=== PATIENT | female | born 1950 | race Caucasian/White ===

== ENCOUNTER 2020-03-03 09:08 | Outpatient (REF) | payer BC, SELFPAY ==
--- NOTE | 2020-03-03 | MM_ITS ---
EXAMINATION: BONE DENSITOMETRY CLINICAL INDICATION: Asymptomatic menopausal state. COMPARISON: Previous BD dated 01/29/2018 and baseline BD dated 06/11/2007. TECHNIQUE: Using a [employer] DXA System (software version: 13.1) manufactured by [employer], dual-energy x-ray absorptiometry was performed of the lumbar spine and left hip. The images are of good technical quality. Summary results are attached. FINDINGS: AP SPINE L1-L4: Current: BMD 1.104 g/cm2, Z-score 0.7, T-score -0.6, normal, 4.2% increase from previous, 5.1% increase from baseline (<5% change is not significant). Prior: BMD 1.060 g/cm2. Baseline: BMD 1.050 g/cm2. LEFT FEMUR, NECK: Current: BMD 0.794 g/cm2, Z-score -0.3, T-score -1.8, osteopenia. Prior: BMD 0.855 g/cm2. Baseline: BMD 0.931 g/cm2. LEFT FEMUR, TOTAL: Current: BMD 0.891 g/cm2, Z-score 0.3, T-score -0.9, normal, 1.0% decrease from previous, 7.2% decrease from baseline (<5% change is not significant). Prior: BMD 0.900 g/cm2. Baseline: BMD 0.960 g/cm2. IDENTIFIED RISK FACTORS: Menopause. HISTORY OF FRACTURE: None listed. MEDICATIONS: Calcium supplements or multivitamin, vitamin D. MM/XR DEXA axial skeleton IMPRESSION: 1. DIAGNOSIS: Osteopenia based on the lowest T-score value of -1.8 in the femoral neck applying World Health Organization criteria. 2. 10-YEAR FRACTURE RISK PREDICTION, FRAX: Major osteoporotic fracture (clinical spine, forearm, hip or shoulder) 10.1%. Hip fracture 1.7%. 3. Treatment Recommendations: NOF guidelines recommend consideration for treatment in postmenopausal women and men age 50 and older presenting with the following: -A hip or vertebral (clinical or morphometric) fracture. -T-score less than or equal to -2.5 at the femoral neck or spine after appropriate evaluation to exclude secondary causes. -Low bone mass at the hip or spine and a 10-year fracture probability by FRAX of greater than or equal to 3% for hip fracture or greater than or equal to 20% for major osteoporotic fracture based on the [place] adapted WHO algorithm. 4. Other Recommendations: All treatment decisions require clinical judgment and consideration of individual patient factors, including patient preferences, comorbidities, previous drug use, risk factors not captured in the FRAX model (e.g. frailty, falls, vitamin D deficiency, increased bone turnover, interval significant decline in bone density) and possible under or overestimation of fracture risk by FRAX. Additional medical evaluation for secondary cause of low bone mineral density may be appropriate. FUTURE SCAN RECOMMENDATION: People with diagnosed cases of osteoporosis or at high risk for fracture should have regular bone mineral density tests. For patients eligible for Medicare, routine testing is allowed once every 2 years. The testing frequency can be increased to one year for patients who have rapidly progressing disease, those who are receiving or discontinuing medical therapy to restore bone mass, or have additional risk factors.
--- NOTE | 2020-03-03 | MM_ITS ---
EXAMINATION: MM SCREENING DIGITAL BREAST TOMOSYNTHESIS, BILATERAL CLINICAL INFORMATION: Screening. Asymptomatic. The lifetime risk of breast cancer based on the Tyrer-Cuzick Model is 4%. COMPARISON: Mammography: 02/26/2019, 01/29/2018, 01/25/2017 TECHNIQUE: Digital breast tomosynthesis is performed in both the craniocaudal and mediolateral oblique views along with computer-aided detection (CAD). Synthesized 2D images are generated from the tomosynthesis. FINDINGS: There are scattered areas of fibroglandular density (ACR BI-RADS breast composition Category b). There is fine fibronodular parenchymal pattern similar to prior studies. No developing density or interval mass or abnormal calcifications. There is a biopsy clip marker again noted right breast mid 5:30 o'clock position. No significant changes. MM/MM tomosynthesis screening BI IMPRESSION: No mammographic evidence of malignancy. ASSESSMENT: BI-RADS 1: Negative RECOMMENDATION: Routine annual mammography screening. This patient's information was entered into a reminder system with a target due date for their next mammogram.
== END 2020-03-03 09:09 | disposition home or self-care (01) ==
LOC: HO.MAMMO 09:08
PROVIDERS: PCP Internal Medicine; Visit Provider Internal Medicine
DX: Z12.31 Encounter for screening mammogram for malignant neoplasm of breast (principal); Z13.820 Encounter for screening for osteoporosis; Z78.0 Asymptomatic menopausal state
CPT/HCPCS: 77063; 77067; 77080

== ENCOUNTER 2020-05-05 09:53 | Outpatient (REF) | payer BC, SELFPAY ==
[2020-05-05 11:25] LABS: Alanine Aminotransferase 16 U/L (0-31); Albumin Level 4.3 g/dL (3.5-5.0); Alkaline Phosphatase 138 U/L (39-117); Anion Gap 12 (12-20); Aspartate Amino Transferase 22 U/L (5-31); Bilirubin Total 0.7 mg/dL (0.0-1.0); Blood Urea Nitrogen 15 mg/dL (9-16); Calcium 9.7 mg/dL (8.4-10.2); Carbon Dioxide 28 mmol/L (22-29); Chloride 104 mmol/L (96-108); Cholesterol 205 mg/dL; Estimated Glomerular Filt Rate > 60; Glucose Fasting 100 mg/dL (60-99); HDL Cholesterol 63 mg/dL; LDL Cholesterol Calculated 129 mg/dl; Potassium 4.6 mmol/l (3.3-5.1); Sodium 139 mmol/L (135-145); Total Protein 7.2 g/dL (6.5-8.0); Triglycerides 65 mg/dL
[2020-05-05 12:00] LABS: Vitamin D 25-OH Total 39.3 ng/mL (>30)
== END 2020-05-05 09:54 | disposition home or self-care (01) ==
LOC: HO.HMGCLDS 09:53
PROVIDERS: PCP Internal Medicine; Visit Provider Internal Medicine
DX: I10 Essential (primary) hypertension (principal); M85.80 Other specified disorders of bone density and structure, unspecified site; Z78.0 Asymptomatic menopausal state
CPT/HCPCS: 36415; 80053; 80061; 82306

== ENCOUNTER 2021-04-13 08:57 | Outpatient (REF) | payer OTHER, SELFPAY ==
--- NOTE | ~2021-04-13 | MM_ITS ---
EXAMINATION: MM SCREENING DIGITAL BREAST TOMOSYNTHESIS, BILATERAL CLINICAL INFORMATION: Screening. Asymptomatic. The lifetime risk of breast cancer based on the Tyrer-Cuzick Model is 3%. COMPARISON: Mammography: 03/03/2020, 02/26/2019, 01/29/2018 TECHNIQUE: Digital breast tomosynthesis is performed in both the craniocaudal and mediolateral oblique views along with computer-aided detection (CAD). Synthesized 2D images are generated from the tomosynthesis. FINDINGS: There are scattered areas of fibroglandular density (ACR BI-RADS breast composition Category b). There are no significant masses, abnormal calcifications, or other abnormalities. There is fine fibronodular parenchymal pattern similar to prior studies. No developing density or architectural abnormality. Biopsy clip marker again noted right breast mid 5:00 position. The axilla and skin contours are unremarkable. MM/MM tomosynthesis screening BI IMPRESSION: No mammographic evidence of malignancy. ASSESSMENT: BI-RADS 2: Benign RECOMMENDATION: Routine annual mammography screening. This patient's information was entered into a reminder system with a target due date for their next mammogram.
== END 2021-04-13 08:58 | disposition home or self-care (01) ==
LOC: HO.MAMMO 08:57
PROVIDERS: PCP Internal Medicine; Visit Provider Internal Medicine
DX: Z12.31 Encounter for screening mammogram for malignant neoplasm of breast (principal)
CPT/HCPCS: 77063; 77067

== ENCOUNTER 2021-12-22 07:51 | Outpatient (REF) | payer OTHER, SELFPAY ==
[2021-12-22 11:41] LABS: Alanine Aminotransferase 17 U/L (0-31); Anion Gap 13 (12-20); Aspartate Amino Transferase 21 U/L (5-31); Blood Urea Nitrogen 17 mg/dL (9-16); Calcium 9.7 mg/dL (8.4-10.2); Carbon Dioxide 28 mmol/L (22-29); Chloride 105 mmol/L (96-108); Cholesterol 204 mg/dL; Estimated Glomerular Filt Rate > 60; Glucose Fasting 92 mg/dL (60-99); HDL Cholesterol 65 mg/dL; LDL Cholesterol Calculated 129 mg/dl; Potassium 4.2 mmol/L (3.3-5.1); Sodium 142 mmol/L (135-145); Triglycerides 51 mg/dL
[2021-12-22 12:05] LABS: Vitamin D 25-OH Total 31.6 ng/mL (>30)
== END 2021-12-22 07:52 | disposition home or self-care (01) ==
LOC: HO.HMGCLDS 07:51
PROVIDERS: PCP Internal Medicine; Visit Provider Internal Medicine
DX: I10 Essential (primary) hypertension (principal); M85.80 Other specified disorders of bone density and structure, unspecified site; Z78.0 Asymptomatic menopausal state
CPT/HCPCS: 36415; 80048; 80061; 82306; 84450; 84460

== ENCOUNTER 2022-04-27 09:32 | Outpatient (REF) | payer OTHER, SELFPAY ==
--- NOTE | ~2022-04-27 | MM_ITS ---
EXAMINATION: MM SCREENING DIGITAL BREAST TOMOSYNTHESIS, BILATERAL CLINICAL INFORMATION: Screening. Asymptomatic. The lifetime risk of breast cancer based on the Tyrer-Cuzick Model is 2.8%. COMPARISON: Mammography: April 13, 2021 and studies dating back to May 20, 2015 TECHNIQUE: Digital breast tomosynthesis is performed in both the craniocaudal and mediolateral oblique views along with computer-aided detection (CAD). Synthesized 2D images are generated from the tomosynthesis. FINDINGS: There are scattered areas of fibroglandular density (ACR BI-RADS breast composition Category b). There are no significant masses, abnormal calcifications, or other abnormalities. Stable bilateral calcifications again noted. MM/MM tomosynthesis screening BI IMPRESSION: No significant changes from prior exam. ASSESSMENT: BI-RADS 2: Benign RECOMMENDATION: Routine annual mammography screening. This patient's information was entered into a reminder system with a target due date for their next mammogram.
== END 2022-04-27 09:33 | disposition home or self-care (01) ==
LOC: HO.MAMMO 09:32
PROVIDERS: PCP Internal Medicine; Visit Provider Internal Medicine
DX: Z12.31 Encounter for screening mammogram for malignant neoplasm of breast (principal)
CPT/HCPCS: 77063; 77067

== ENCOUNTER 2022-12-25 08:36 | Outpatient (REF) | payer OTHER, SELFPAY ==
[2022-12-25 12:30] LABS: Alanine Aminotransferase 12 U/L (0-31); Anion Gap 11 (12-20); Aspartate Amino Transferase 22 U/L (5-31); Blood Urea Nitrogen 17 mg/dL (9-16); Calcium 9.8 mg/dL (8.4-10.2); Carbon Dioxide 26 mmol/L (22-29); Chloride 107 mmol/L (96-108); Cholesterol 199 mg/dL (<200); Estimated Glomerular Filt Rate > 60; Glucose Fasting 89 mg/dL (60-99); HDL Cholesterol 72 mg/dL (>40); LDL Cholesterol Calculated 115 mg/dL (<100); Potassium 4.1 mmol/L (3.3-5.1); Sodium 140 mmol/L (135-145); Triglycerides 63 mg/dL (<150)
[2022-12-25 12:31] LABS: Vitamin D 25-OH Total 62.1 ng/mL (>30)
== END 2022-12-25 08:37 | disposition home or self-care (01) ==
LOC: HO.HMGCLDS 08:36
PROVIDERS: PCP Internal Medicine; Visit Provider Internal Medicine
DX: Z00.01 Encounter for general adult medical examination with abnormal findings (principal); I10 Essential (primary) hypertension; M85.80 Other specified disorders of bone density and structure, unspecified site; Z78.0 Asymptomatic menopausal state
CPT/HCPCS: 36415; 80048; 80061; 82306; 84450; 84460

== ENCOUNTER 2022-12-28 10:53 | Outpatient (AMB) | payer OTHER, SELFPAY ==
--- NOTE | 2022-12-28 10:58 | MHC.PC.OV ---
Vital Signs 12/28/22 11:01 Height 5 ft Weight 164 lb BMI 32.0 BP 120/60 Blood Pressure Location Rt brachial Position Sitting Pulse 75 Pulse Source Pulse Oximeter Pulse Oximetry (%) 99 Oxygen Delivery Method Room Air Intake Visit Reasons: Annual PE Intake Note: patient is here today for her annual PE Allergies codeine Allergy (Unknown, Verified 12/28/22 11:27) tachycardia hydromorphone [Dilaudid] Adverse Reaction (Unknown, Verified 12/28/22 11:27) vomiting Hydrocodone-Acetaminophen Adverse Reaction (Unknown, Uncoded 12/28/22 11:27) palpitations , twitching Medication List - Last Reconciled 12/28/22 by Darlyn Garcia MD cholecalciferol (vitamin D3) 50 mcg PO DAILY losartan 25 mg PO DAILY 90 days [id number] 1 tab PO DAILY Tobacco use date assessed: 12/28/22 Fall risk assessment: 1 Fall in past year Last assessed Fall Risk: 12/28/22 Dental Screening Dental Screen Date: 12/28/22 Did you have a dental visit in the last 12 months?: Yes Did you have a dental problem in the last 6 months where you did not have access to dental care?: No Was dental information given to patient?: Patient has dentist HPI Annual PE HPI Details 72-year-old lady here today for physical exam. She has hypertension currently stable and controlled on losartan 25 mg once a day. She has osteopenia left femoral neck as seen on a bone density scan done in 2019, no history of any fractures. She takes cholecalciferol 50 mcg once a day and stays active. She is up-to-date with her screening mammogram done earlier this year, and is up-to-date with her screening colonoscopy not due again until 2023, previously done by Dr. Sood. She has had her COVID vaccination, and gets yearly flu shots, up-to-date with her pneumonia vaccine and Tdap, but has not yet had a new Shingrix vaccine. [facility] Medical History Menopause Essential hypertension Osteopenia Recurrent kidney stones Surgical History History of laparoscopic appendectomy History of cataract surgery Family History Father Acute myocardial infarction Alcoholism Ankylosing spondylitis Mother HTN (hypertension) Thyroid disease Maternal Grandmother Non-insulin dependent diabetes mellitus Sister No problems noted. Sister No problems noted. Daughter No problems noted. Daughter No problems noted. Brother No problems noted. Brother No problems noted. Brother No problems noted. Brother No problems noted. Brother No problems noted. Social History Housing: House Alcohol intake: current Patient Tobacco Use Status: Former Tobacco user Tobacco use type: Cigarette Years Smoked: 5 yrs e-Cigarette/Vaping Use: Never Used Second Hand Smoke Exposure: No service: No Current occupational status: retired Cognitive needs: No Hearing needs: No Vision needs: No Questionnaire PHQ-9 Over the last 2 weeks, how often have you been bothered by any of the following problems? Depression Screening Interpretation: Negative Source: Developed by Drs. Shant Guzman, Danny Rockwell and colleagues, with an educational milady from [employer] Thrive Questionnaire Date Thrive assessed: 06/28/22 AUDIT C Alcohol Use Questionnaire (AUDIT-C) 1. How often do you have a drink containing alcohol?: Monthly or less 2. How many drinks containing alcohol do you have on a typical day when you are drinking?: 1 or 2 Total Score: 1 JACK-7 AMB Questionnaire JACK-7 Date JACK - 7 assessed: 06/28/22 Source: Developed by Drs. Shant Guzman, Danny Rockwell and colleagues, with an educational milady from [employer] 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 Denies change in vision, Denies eye discharge and Denies itchy eyes ENT Denies dizziness, Denies headache(s), Denies nasal congestion, Denies nasal discharge and Denies sore throat Card Denies chest pain, Denies lightheadedness, Denies palpitations and Denies dyspnea Resp Denies chest congestion, Denies cough, Denies dyspnea and Denies wheezing GI Denies abdominal pain, Denies change in bowel habits and Denies heartburn Denies urinary frequency, Denies dysuria and Denies urinary urgency Musc Denies myalgias, Denies arthralgias, Denies joint swelling and Denies limited range of motion Skin/Breast Denies lesions and Denies rash Neuro Denies dizziness, Denies headache(s) and Denies weakness Psych Denies anxiety and Denies depression Endo Denies fatigue, Denies polydipsia, Denies polyuria and Denies palpitations Keith/Lymph Denies easy bruising Aller/Immun Denies itchy eyes, Denies seasonal rhinorrhea and Denies wheezing Physical exam (Primary Care) Vital Signs: Last Vital Signs Pulse 75 12/28/22 11:01 BP 120/60 12/28/22 11:01 Pulse Ox 99 12/28/22 11:01 Oxygen Delivery Method Room Air 12/28/22 11:01 BMI result Body Mass Index 32.0 Tobacco/Smoking Status: Tobacco use Status Tobacco use date assessed 12/28/22 12/28/22 11:06 Patient Tobacco Use Status Former Tobacco user 12/28/22 10:59 Tobacco use type Cigarette 12/28/22 10:59 e-Cigarette/Vaping Use Never Used 12/28/22 10:59 Depression Screening Interpretation: Negative Thrive Assessment: Date of Thrive Assessment Date Thrive assessed 06/28/22 12/28/22 10:59 Const Orientation/consciousness: patient oriented x3 HENMT Other: Normocephalic atraumatic General nose exam: Normal external nose present and No nasal discharge present Face and sinus: Yes sinuses nontender and Yes face symmetric Mouth: Normal oral and palatal mucosa present and moist mucous membranes Eyes General: appearance normal, both eyes and all related structures Neck Other: Supple no lymphadenopathy, thyroid gland nonpalpable Neck: Yes full ROM, Yes no lymphadenopathy and Yes supple Chest Breast/axilla palpation: normal palpation of the breasts Resp Other: Clear to auscultation bilaterally Cardio Other: S1-S2 present regular rate and rhythm GI Inspection: Yes normal to inspection Palpation (GI): Soft to palpation, nontender and no guarding General: Yes no CVA tenderness Back/Spine/Pelvis Back: no CVA tenderness and No back tenderness Skin General skin exam: no rashes or lesions noted Neuro General: patient oriented x3, gait normal, Normal light touch and pain sensation, no focal motor deficits and CN's II-XI intact bilaterally Extrem General: Yes full ROM, Yes no joint enlargement, Yes no pedal edema, Yes no calf tenderness and Yes normal gait Psych Appearance: grossly normal and well kempt Mental Status: mental status grossly normal Speech and movement: Normal speech and movement present Affect: normal affect Attitude: cooperative Results Reviewed Results Reviewed: NTERED: 12/25/[address]: ORDERED: Met Prof Fast, AST, ALT, Lipid Panel, Vitamin D 25-OH Test Result Flag Reference Site Sodium 140 135-145 mmol/L Potassium 4.1 3.3-5.1 mmol/L CL 107 96-108 mmol/L CO2 26 22-29 mmol/L Gap 11 L 12-20 BUN 17 H 9-16 mg/dL Creat 0.84 0.5-1.4 mg/dL EGFR > 60 NOTE: For -Armenian individuals, multiply the result by 1.210. Chronic Kidney Disease: Estimated GFR < 60 mL/min/1.73m2 Severe Kidney Disease: Estimated GFR < 15 mL/min/1.73m2 FBS 89 60-99 mg/dL CA 9.8 8.4-10.2 mg/dL AST (GOT) 22 5-31 U/L ALT (GPT) 12 0-31 U/L Triglyceride 63 <150 mg/dL Desirable Triglyceride: less than 150 mg/dL Borderline High Triglyceride 150-199 mg/dL High Triglyceride: 200-499 mg/dL Very High Triglyceride: greater than or equal to 5OO mg/dL Cholesterol 199 <200 mg/dL Desirable Cholesterol: less than 200 mg/dL Borderline High Cholesterol: 200-239 mg/dL High Cholesterol: greater than 239 mg/dL LDL Calculated 115 H <100 mg/dL Desirable LDL: less than 100 mg/dL Near Optimal/Above Optimal LDL: 110-129 mg/dL Borderline High LDL: 130-159 mg/dL High LDL: 160-189 mg/dL Very High LDL: greater than or equal to 190 mg/dL HDL 72 >40 mg/dL Desirable HDL: greater than 40 mg/dL Note: This HDL assay may give artificially low results in patients with liver disease. Vit D 25-OH Tot 62.1 >30 ng/mL Health Based Reference Values* < 20 ng/mL Deficient 20-30 ng/mL Insufficient > 30 ng/mL Sufficient Assessment and Plan Assessment & Plan (1) Annual visit for general adult medical examination with abnormal findings: Code(s): Z00.01 - Encounter for general adult medical examination with abnormal findings Plan: Reviewed recent fasting lab results with patient. Recommended dental visit every 6 months and regular eye exams, at least every 2 years. Take adequate calcium in diet and vitamin-D 3 at 2000 IU per cap once a day, in addition to weight-bearing exercises to help maintain good muscle tone and weight control. Instructed to do self-breast exam, and continue to get yearly mammogram, currently up-to-date, will order another bone density scan. Up-to-date with her Tdap and pneumococcal vaccination, reminded to get her COVID booster and flu shot as well as her shingles vaccine. (2) Osteopenia: Comment: Left hip, normal in spine, last bone density scan done February 2020, with no change from previous 1 Code(s): M85.80 - Other specified disorders of bone density and structure, unspecified site Qualifiers: Laterality: left Osteopenia location: hip Qualified Code(s): M85.852 - Other specified disorders of bone density and structure, left thigh (3) Essential hypertension: Code(s): I10 - Essential (primary) hypertension Plan: Blood pressure stable controlled losartan 25 mg daily, will continue Orders: Orders XR DEXA axial skeleton Today M85.80 - Other specified disorders of bone density and structure, unspecified site, Z78.0 - Asymptomatic menopausal state Coding Level of Care Code Est Pt Prev Care >65y(76996) Diagnoses Annual visit for general adult medical examination with abnormal findings Z00.01 Osteopenia of left hip M85.852 Laterality: left Osteopenia location: hip Essential hypertension I10
[2022-12-28 11:01] VITALS: BP 120/60; PULSE 75; O2SAT 99; BMI 32.0
== END 2022-12-28 13:00 | disposition home or self-care (01) ==
PROVIDERS: Visit Provider Internal Medicine
DX: Z00.01 Encounter for general adult medical examination with abnormal findings (principal); M85.852 Other specified disorders of bone density and structure, left thigh; I10 Essential (primary) hypertension
CPT/HCPCS: 99397

== ENCOUNTER 2023-05-03 09:31 | Outpatient (REF) | payer OTHER, SELFPAY ==
--- NOTE | ~2023-05-03 | MM_ITS ---
EXAMINATION: MM SCREENING DIGITAL BREAST TOMOSYNTHESIS, BILATERAL CLINICAL INFORMATION: Screening. Asymptomatic. The patient is status post benign stereotactic biopsy of the right breast in 2014. COMPARISON: Mammography: This study is compared with prior exams dating back to 2018. TECHNIQUE: Digital breast tomosynthesis is performed in both the craniocaudal and mediolateral oblique views along with computer-aided detection (CAD). Synthesized 2D images are generated from the tomosynthesis. FINDINGS: There are scattered areas of fibroglandular density (ACR BI-RADS breast composition Category b). There are no significant masses, abnormal calcifications, or other abnormalities. There is a tissue marker in the right breast from prior benign percutaneous biopsy. MM/MM tomosynthesis screening BI IMPRESSION: No mammographic evidence of malignancy. ASSESSMENT: BI-RADS BI-RADS 2 - Benign Findings RECOMMENDATION: Routine annual mammography screening. 1 year F/U This examination should not preclude the clinical evaluation of a suspicious palpable abnormality. This patient's information was entered into a reminder system with a target due date for their next mammogram.
--- NOTE | ~2023-05-03 | MM_ITS ---
EXAMINATION: BONE DENSITOMETRY CLINICAL INDICATION: Other specified disorders of bone density and structure, unspecified site. COMPARISON: Previous BD dated 03/03/2020 and baseline BD dated 06/11/2007. TECHNIQUE: Using a [email or web address] DXA System (software version: 13.1) manufactured by [employer], dual-energy x-ray absorptiometry was performed of the lumbar spine and left hip. The images are of good technical quality. Summary results are attached. FINDINGS: AP SPINE L1-L4: Current: BMD 1.103 g/cm2, Z-score 0.8, T-score -0.6, normal, 0.1% decrease from previous, 5.0% increase from baseline (<5% change is not significant). Prior: BMD 1.104 g/cm2. Baseline: BMD 1.050 g/cm2. LEFT FEMUR, NECK: Current: BMD 0.900 g/cm2, Z-score 0.7, T-score -1.0, normal. Prior: BMD 0.794 g/cm2. Baseline: BMD 0.931 g/cm2. LEFT FEMUR, TOTAL: Current: BMD 0.888 g/cm2, Z-score 0.5, T-score -0.9, normal, 0.3% decrease from previous, 7.5% decrease from baseline (<5% change is not significant). Prior: BMD 0.891 g/cm2. Baseline: BMD 0.960 g/cm2. IDENTIFIED RISK FACTORS: Menopause. HISTORY OF FRACTURE: None listed. MEDICATIONS: Calcium supplement and/or multivitamin. Vitamin D. MM/XR DEXA axial skeleton IMPRESSION: 1. DIAGNOSIS: Normal bone density based on the lowest T-score value of -1.0 in the femoral neck applying World Health Organization criteria. 2. 10-YEAR FRACTURE RISK PREDICTION, FRAX: According to the guidelines, FRAX calculation should only be performed on patients in the osteopenia bone density category.?Therefore, FRAX was not performed on this patient.? 3. Treatment Recommendations: NOF guidelines recommend consideration for treatment in postmenopausal women and men age 50 and older presenting with the following: -A hip or vertebral (clinical or morphometric) fracture. -T-score less than or equal to -2.5 at the femoral neck or spine after appropriate evaluation to exclude secondary causes. -Low bone mass at the hip or spine and a 10-year fracture probability by FRAX of greater than or equal to 3% for hip fracture or greater than or equal to 20% for major osteoporotic fracture based on the [place] adapted WHO algorithm. 4. Other Recommendations: All treatment decisions require clinical judgment and consideration of individual patient factors, including patient preferences, comorbidities, previous drug use, risk factors not captured in the FRAX model (e.g. frailty, falls, vitamin D deficiency, increased bone turnover, interval significant decline in bone density) and possible under or overestimation of fracture risk by FRAX. FUTURE SCAN RECOMMENDATION: People with diagnosed cases of osteoporosis or at high risk for fracture should have regular bone mineral density tests. For patients eligible for Medicare, routine testing is allowed once every 2 years. The testing frequency can be increased to one year for patients who have rapidly progressing disease, those who are receiving or discontinuing medical therapy to restore bone mass, or have additional risk factors.
== END 2023-05-03 09:32 | disposition home or self-care (01) ==
LOC: HO.MAMMO 09:31
PROVIDERS: PCP Internal Medicine; Visit Provider Internal Medicine
DX: Z12.31 Encounter for screening mammogram for malignant neoplasm of breast (principal); Z13.820 Encounter for screening for osteoporosis; Z78.0 Asymptomatic menopausal state; M85.80 Other specified disorders of bone density and structure, unspecified site
CPT/HCPCS: 77063; 77067; 77080

== ENCOUNTER → 2023-05-03 10:30 | Outpatient (BNV) | payer OTHER, SELFPAY | PROVIDERS: PCP Internal Medicine; Visit Provider Radiology Diagnostic Radiology | DX: Z12.31 Encounter for screening mammogram for malignant neoplasm of breast (principal) | CPT/HCPCS: 77063; 77067 ==

== ENCOUNTER 2023-06-28 09:22 | Outpatient (AMB) | payer OTHER, SELFPAY ==
--- NOTE | 2023-06-28 09:28 | A.OFFPC_ITS ---
Vital Signs 06/28/23 09:32 Height 5 ft Weight 162 lb BMI 31.6 BP 120/72 Blood Pressure Location Lt brachial Position Sitting Pulse 74 Pulse Source Pulse Oximeter Pulse Oximetry (%) 98 Oxygen Delivery Method Room Air Intake Visit Reasons: 6 month follow up Intake Note: Pt is here today for her 6mo. f/u HTN Allergies codeine Allergy (Unknown, Verified 06/28/23 09:48) tachycardia hydromorphone [Dilaudid] Adverse Reaction (Unknown, Verified 06/28/23 09:48) vomiting Hydrocodone-Acetaminophen Adverse Reaction (Unknown, Uncoded 06/28/23 09:48) palpitations , twitching Medication List - Last Reconciled 06/28/23 by Darlyn Garcia MD cholecalciferol (vitamin D3) 50 mcg PO DAILY losartan 25 mg PO DAILY 90 days sbsgyklzcpsh-[id number]-[id number] 1 tab PO DAILY Tobacco use date assessed: 06/28/23 Fall risk assessment: No Falls in past year Last assessed Fall Risk: 06/28/23 Dental Screening Dental Screen Date: 06/28/23 Did you have a dental visit in the last 12 months?: Yes Did you have a dental problem in the last 6 months where you did not have access to dental care?: No Was dental information given to patient?: Patient has dentist HPI 6 month follow up HPI Details 73-year-old lady with hypertension, 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 She is compliant with taking her losartan, takes multivitamins and vitamin-D 3 supplements. She exercises by walking her dog at least twice a day for approximately 2 miles each time, and has been compliant with healthy eating habits. Latest fasting labs showed electrolytes, renal function, calcium level, fasting glucose, liver enzymes, lipid level and vitamin-D are all within normal limits. She had a normal screening mammogram and bone density now showed normal bone density in lumbar spine left femoral neck and left femur. She had a normal colonoscopy done by Dr. Sood in 2013, due this year, but would like to bone it until next year and wants to do Cologuard testing instead next year. [facility] Medical History (Updated 06/28/23 @ 10:13 by Darlyn Garcia MD) Anti-TPO antibodies present History of osteopenia Menopause Essential hypertension Recurrent kidney stones Surgical History History of laparoscopic appendectomy History of cataract surgery Family History Father Acute myocardial infarction Alcoholism Ankylosing spondylitis Mother HTN (hypertension) Thyroid disease Maternal Grandmother Non-insulin dependent diabetes mellitus Sister No problems noted. Sister No problems noted. Daughter No problems noted. Daughter No problems noted. Brother No problems noted. Brother No problems noted. Brother No problems noted. Brother No problems noted. Brother No problems noted. Social History Housing: House Alcohol intake: current Patient Tobacco Use Status: Former Tobacco user Tobacco use type: Cigarette Years Smoked: 5 yrs e-Cigarette/Vaping Use: Never Used Second Hand Smoke Exposure: No service: No Current occupational status: retired Cognitive needs: No Hearing needs: No Vision needs: No Questionnaire PHQ-9 Over the last 2 weeks, how often have you been bothered by any of the following problems? 1. Little interest or pleasure in doing things: not at all 2. Feeling down, depressed, or hopeless: not at all 3. Trouble falling or staying asleep, or sleeping too much: not at all 4. Feeling tired or having little energy: not at all 5. Poor appetite or overeating: not at all 6. Feeling bad about yourself - or that you are a failure or have let yourself or your family down: not at all 7. Trouble concentrating on things, such as reading the newspaper or watching television: not at all 8. Moving or speaking so slowly that other people could have noticed. Or the opposite - being so fidgety or restless that you have been moving around a lot more than usual: not at all 9. Thoughts that you would be better off or of hurting yourself in some way: not at all Total score: 0 Depression Screening Interpretation: Negative Depression Screening Done: Yes [id number] - PHQ-9 Billing: Yes Source: Developed by Drs. Shant Guzman, Elisabeth Sutherland, Danny Yun and colleagues, with an educational milady from [employer]. Thrive Questionnaire Date Thrive assessed: 06/28/23 I am a: Patient What is your living situation today?: I have a steady place to live Within the past 12 months, did the food you bought not last and you didn't have the money to get more?: Never true Within the past 12 months, did you worry whether your food would run out before you got money to buy more?: Never true Do you have trouble paying for medicines?: No Do you have trouble getting transportation to medical appointments?: No Do you have trouble paying your heating and electricity bill?: No Do you have trouble taking care of your child, family member or friend?: No Do you have trouble with day-to-day activities such as bathing, preparing meals, shopping, managing finances, etc.?: No Are you currently unemployed and looking for a job?: No Are you interested in more education?: No THRIVE Score: 0 AUDIT C Alcohol Use Questionnaire (AUDIT-C) 1. How often do you have a drink containing alcohol?: Monthly or less 2. How many drinks containing alcohol do you have on a typical day when you are drinking?: 1 or 2 3. How often do you have six or more drinks on one occasion?: Never Total Score: 1 JACK-7 AMB Questionnaire JACK-7 Date JACK - 7 assessed: 06/28/23 Feeling nervous, anxious, or on edge: 0 = Not at all Not being able to stop or control worryin = Not at all Worrying too much about different things: 0 = Not at all Trouble relaxin = Not at all Being so restless that it is hard to sit still: 0 = Not at all Becoming easily annoyed or irritable: 0 = Not at all Feeling afraid as if something awful might happen: 0 = Not at all Total JACK-7 score (0-4 normal; 5-9 mild; 10-14 moderate; 15-21 severe): 0 Source: Developed by Drs. Shant Guzman, Danny Rockwell and colleagues, with an educational milady from [employer]. 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 Denies change in vision, Denies eye discharge and Denies itchy eyes ENT Denies dizziness, Denies headache(s), Denies nasal congestion, Denies nasal discharge and Denies sore throat Card Denies chest pain, Denies lightheadedness, Denies palpitations and Denies dyspnea Resp Denies chest congestion, Denies cough, Denies dyspnea and Denies wheezing GI Denies abdominal pain, Denies change in bowel habits and Denies heartburn Denies hematuria, Denies urinary frequency, Denies difficulty voiding, Denies dysuria, Denies urinary incontinence and Denies urinary urgency Musc Denies myalgias, Denies arthralgias, Denies joint swelling and Denies limited range of motion Skin/Breast Denies lesions and Denies rash Neuro Denies dizziness, Denies headache(s) and Denies weakness Psych Denies anxiety and Denies depression Endo Denies fatigue, Denies polydipsia, Denies polyuria and Denies palpitations Keith/Lymph Denies easy bruising Aller/Immun Denies itchy eyes, Denies seasonal rhinorrhea and Denies wheezing Physical exam (Primary Care) Vital Signs: Last Vital Signs Pulse 74 06/28/23 09:32 BP 120/72 06/28/23 09:32 Pulse Ox 98 06/28/23 09:32 Oxygen Delivery Method Room Air 06/28/23 09:32 BMI result Body Mass Index 31.6 Tobacco/Smoking Status: Tobacco use Status Tobacco use date assessed 06/28/23 06/28/23 09:36 Patient Tobacco Use Status Former Tobacco user 06/28/23 09:28 Tobacco use type Cigarette 06/28/23 09:28 e-Cigarette/Vaping Use Never Used 06/28/23 09:28 PHQ-9: PHQ-9 Score PHQ-9: Total score 0 06/28/23 10:07 Depression Screening Interpretation: Negative Thrive Assessment: Date of Thrive Assessment Date Thrive assessed 06/28/23 06/28/23 09:36 Const Orientation/consciousness: patient oriented x3 HENMT Other: Normocephalic atraumatic General nose exam: Normal external nose present and No nasal discharge present Face and sinus: Yes face symmetric Mouth: Normal oral and palatal mucosa present and moist mucous membranes Eyes General: appearance normal, both eyes and all related structures Neck Other: Supple no lymphadenopathy, thyroid gland nonpalpable Neck: Yes full ROM, Yes no lymphadenopathy and Yes supple Chest Breast/axilla palpation: normal palpation of the breasts Resp Other: Clear to auscultation bilaterally Cardio Other: S1-S2 present regular rate and rhythm GI Inspection: Yes normal to inspection Palpation (GI): Soft to palpation, nontender and no guarding General: Yes no CVA tenderness Back/Spine/Pelvis Back: no CVA tenderness and No back tenderness Skin General skin exam: no rashes or lesions noted Neuro General: patient oriented x3, gait normal, Normal light touch and pain sensation, no focal motor deficits and CN's II-XI intact bilaterally Extrem General: Yes full ROM, Yes no joint enlargement, Yes no pedal edema, Yes no calf tenderness and Yes normal gait Psych Appearance: grossly normal and well kempt Mental Status: mental status grossly normal Speech and movement: Normal speech and movement present Affect: normal affect Attitude: cooperative Results Reviewed Results Reviewed: Name: Janie Ji Age/Sex: 72/F : 1950 Unit#: [id number] Attend Dr: Darlyn Garcia MD Re12/25/22 Status: DEP REF Location: [facility] [place] Disch: SPEC : [id number] ADY: 12/25/22 STATUS: COMP REQ : [id number] RECD: 12/25/[address]: Darlyn Garcia MD COMP: 12/25/22 ENTERED: 12/25/[address] [facility] DR: ORDERED: Met Prof Fast, AST, ALT, Lipid Panel, Vitamin D 25-OH Test Result Flag Reference Sodium 140 135-145 mmol/L Potassium 4.1 3.3-5.1 mmol/L CL 107 96-108 mmol/L CO2 26 22-29 mmol/L Gap 11 L 12-20 BUN 17 H 9-16 mg/dL Creat 0.84 0.5-1.4 mg/dL EGFR > 60 NOTE: For -[place] individuals, multiply the result by 1.210. Chronic Kidney Disease: Estimated GFR < 60 mL/min/1.73m2 Severe Kidney Disease: Estimated GFR < 15 mL/min/1.73m2 FBS 89 60-99 mg/dL CA 9.8 8.4-10.2 mg/dL AST (GOT) 22 5-31 U/L ALT (GPT) 12 0-31 U/L Triglyceride 63 <150 mg/dL Desirable Triglyceride: less than 150 mg/dL Borderline High Triglyceride 150-199 mg/dL High Triglyceride: 200-499 mg/dL Very High Triglyceride: greater than or equal to 5OO mg/dL Cholesterol 199 <200 mg/dL Desirable Cholesterol: less than 200 mg/dL Borderline High Cholesterol: 200-239 mg/dL High Cholesterol: greater than 239 mg/dL LDL Calculated 115 H <100 mg/dL Desirable LDL: less than 100 mg/dL Near Optimal/Above Optimal LDL: 110-129 mg/dL Borderline High LDL: 130-159 mg/dL High LDL: 160-189 mg/dL Very High LDL: greater than or equal to 190 mg/dL HDL 72 >40 mg/dL Desirable HDL: greater than 40 mg/dL Note: This HDL assay may give artificially low results in patients with liver disease. Vit D 25-OH Tot 62.1 >30 ng/mL Health Based Reference Values* < 20 ng/mL Deficient 20-30 ng/mL Insufficient > 30 ng/mL Sufficient Assessment and Plan Assessment & Plan (1) Annual visit for general adult medical examination with abnormal findings: Code(s): Z00.01 - Encounter for general adult medical examination with abnormal findings Plan: Reviewed recent fasting lab results with patient which showed results within normal limits. Continue with regular dental visit every 6 months and regular eye exams, at least every 2 years. Take adequate calcium in diet and vitamin-D 3 at 2000 IU per cap once a day, in addition to weight-bearing exercises to help maintain good muscle tone and weight control. Instructed to do self-breast exam, and is up-to-date with her yearly mammogram, and bone density screening. She is up-to-date with her flu vaccine, gets yearly, received 4 doses of COVID vaccine does not want to get a booster, up-to-date with her pneumococcal vaccination, reminded to get her shingles vaccine and is up-to-date with her Tdap (2) Essential hypertension: Code(s): I10 - Essential (primary) hypertension Plan: Blood pressure at goal of less than 130/80. Continue losartan 25 mg daily. Reinforced importance of following a low sodium diet, getting regular exercise, and lowering stress levels. (3) History of osteopenia: Code(s): Z87.39 - Personal history of other diseases of the musculoskeletal system and connective tissue Plan: Bone density done April 2023 she now showed normal bone density in lumbar spine, left femoral neck and left femur. Continue doing regular weight-bearing exercise, continue with vitamin-D supplements and taking adequate calcium from dietary sources (4) Recurrent kidney stones: Code(s): N20.0 - Calculus of kidney Plan: Currently asymptomatic (5) Anti-TPO antibodies present: Code(s): R76.8 - Other specified abnormal immunological findings in serum Plan: Patient without any symptoms of hypo or hyperthyroidism. Ordered thyroid peroxidase antibodies to be done on next blood work together with TSH and free T4 Orders: Orders Alanine Aminotransferase 12/23/23 I10 - Essential (primary) hypertension, N20.0 - Calculus of kidney, R76.8 - Other specified abnormal immunological findings in serum, Z13.220 - Encounter for screening for lipoid disorders, Z78.0 - Asy mptomatic menopausal state, Z87.39 - Personal history of other diseases of the musculoskeletal system and connective tissue Basic Metabolic Panel Fasting 12/23/23 I10 - Essential (primary) hypertension, N20.0 - Calculus of kidney, R76.8 - Other specified abnormal immunological findings in serum, Z13.220 - Encounter for screening for lipoid disorders, Z78.0 - Asymptomatic menopausal state, Z87.39 - Personal history of other diseases of the musculoskeletal system and connective tissue Thyroid Peroxidase Antibodies 12/23/23 I10 - Essential (primary) hypertension, N20.0 - Calculus of kidney, R76.8 - Other specified abnormal immunological findings in serum, Z13.220 - Encounter for screening for lipoid disorders, Z78.0 - Asymptomatic menopausal state, Z87.39 - Personal history of other diseases of the musculoskeletal system and connective tissue Vitamin D 25-OH Total 12/23/23 I10 - Essential (primary) hypertension, N20.0 - Calculus of kidney, R76.8 - Other specified abnormal immunological findings in serum, Z13.220 - Encounter for screening for lipoid disorders, Z78.0 - Asymptomatic menopausal state, Z87.39 - Personal history of other diseases of the musculoskeletal system and connective tissue Aspartate Amino Transferase 12/23/23 I10 - Essential (primary) hypertension, N20.0 - Calculus of kidney, R76.8 - Other specified abnormal immunological findings in serum, Z13.220 - Encounter for screening for lipoid disorders, Z78.0 - Asymptomatic menopausal state, Z87.39 - Personal history of other diseases of the musculoskeletal system and connective tissue Hemoglobin and Hematocrit 12/23/23 I10 - Essential (primary) hypertension, N20.0 - Calculus of kidney, R76.8 - Other specified abnormal immunological findings in serum, Z13.220 - Encounter for screening for lipoid disorders, Z78.0 - Asymptomatic menopausal state, Z87.39 - Personal history of other diseases of the musculoskeletal system and connective tissue Thyroid Stimulating Hormone 12/23/23 I10 - Essential (primary) hypertension, N20.0 - Calculus of kidney, R76.8 - Other specified abnormal immunological findings in serum, Z13.220 - Encounter for screening for lipoid disorders, Z78.0 - Asymptomatic menopausal state, Z87.39 - Personal history of other diseases of the musculoskeletal system and connective tissue Free T4 (Free Thyroxine) 12/23/23 I10 - Essential (primary) hypertension, N20.0 - Calculus of kidney, R76.8 - Other specified abnormal immunological findings in serum, Z13.220 - Encounter for screening for lipoid disorders, Z78.0 - Asymptomatic menopausal state, Z87.39 - Personal history of other diseases of the musculoskeletal system and connective tissue Lipid Panel 12/23/23 I10 - Essential (primary) hypertension, N20.0 - Calculus of kidney, R76.8 - Other specified abnormal immunological findings in serum, Z13.220 - Encounter for screening for lipoid disorders, Z78.0 - Asymptomatic menopausal state, Z87.39 - Personal history of other diseases of the musculoskeletal system and connective tissue Coding Level of Care Code Est Pt Prev Care >65y(82345) Diagnoses Annual visit for general adult medical examination with abnormal findings Z00.01 Essential hypertension I10 History of osteopenia Z87.39 Recurrent kidney stones N20.0 Anti-TPO antibodies present R76.8 Additional Codes JACK-7 Assessment Billing - JACK-7 Assessment Tool: JACK-7 Assessment [id number] ([id number])
[2023-06-28 09:32] VITALS: BP 120/72; PULSE 74; O2SAT 98; BMI 31.6
== END 2023-06-28 10:09 | disposition home or self-care (01) ==
PROVIDERS: PCP Internal Medicine; Visit Provider Internal Medicine
DX: Z00.01 Encounter for general adult medical examination with abnormal findings (principal); I10 Essential (primary) hypertension; Z87.39 Personal history of other diseases of the musculoskeletal system and connective tissue; N20.0 Calculus of kidney; R76.8 Other specified abnormal immunological findings in serum
CPT/HCPCS: 99397

== ENCOUNTER 2024-01-04 08:29 | Outpatient (REF) | payer OTHER, SELFPAY ==
[2024-01-04 10:09] LABS: Hematocrit 40.2 % (37.0-47.0); Hemoglobin 13.5 g/dl (12.0-16.0)
[2024-01-04 10:34] LABS: Alanine Aminotransferase 14 U/L (0-31); Anion Gap 11 (12-20); Aspartate Amino Transferase 22 U/L (5-31); Blood Urea Nitrogen 15 mg/dL (9-16); Calcium 9.8 mg/dL (8.4-10.2); Carbon Dioxide 29 mmol/L (22-29); Chloride 108 mmol/L (96-108); Cholesterol 209 mg/dL (<200); Estimated Glomerular Filt Rate > 60; Glucose Fasting 90 mg/dL (60-99); HDL Cholesterol 69 mg/dL (>40); LDL Cholesterol Calculated 126 mg/dL (<100); Potassium 4.5 mmol/L (3.3-5.1); Sodium 143 mmol/L (135-145); Triglycerides 73 mg/dL (<150)
[2024-01-04 10:51] LABS: Free T4 (Free Thyroxine) 0.76 ng/dL (0.71-1.85); Thyroid Stimulating Hormone 13.76 uIU/mL (0.32-4.0); Vitamin D 25-OH Total 50.7 ng/mL (>30)
[2024-01-08 09:44] LABS: Thyroid Peroxidase Antibodies 453 IU/mL (<9)
== END 2024-01-04 08:30 | disposition home or self-care (01) ==
LOC: HO.HMGCLDS 08:29
PROVIDERS: PCP Internal Medicine; Visit Provider Internal Medicine
DX: I10 Essential (primary) hypertension (principal); Z78.0 Asymptomatic menopausal state; Z87.39 Personal history of other diseases of the musculoskeletal system and connective tissue; N20.0 Calculus of kidney; Z13.220 Encounter for screening for lipoid disorders; R76.8 Other specified abnormal immunological findings in serum
CPT/HCPCS: 36415; 80048; 80061; 82306; 84439; 84443; 84450; 84460; 85014; 85018; 86376

== ENCOUNTER 2024-01-08 08:08 | Outpatient (AMB) | payer OTHER, SELFPAY ==
[2024-01-08 08:11] VITALS: BP 120/72; PULSE 74; O2SAT 98; BMI 31.6
--- NOTE | 2024-01-08 08:11 | A.OFFPC_ITS ---
Vital Signs 01/08/24 08:11 Height 5 ft Weight 162 lb BMI 31.6 BP 120/72 Blood Pressure Location Rt brachial Position Sitting Pulse 74 Pulse Source Pulse Oximeter Pulse Oximetry (%) 98 Oxygen Delivery Method Room Air Intake Visit Reasons: Annual PE Intake Note: Pt is here today for her PE mammogram 05/03/23, bone density scan 05/03/23, colonoscopy 01/15/14 Allergies codeine Allergy (Unknown, Verified 01/08/24 08:26) tachycardia hydromorphone [Dilaudid] Adverse Reaction (Unknown, Verified 01/08/24 08:26) vomiting Hydrocodone-Acetaminophen Adverse Reaction (Unknown, Uncoded 01/08/24 08:26) palpitations , twitching Medication List - Last Reconciled 01/08/24 by Darlyn Garcia MD cholecalciferol (vitamin D3) 50 mcg PO DAILY losartan 25 mg PO DAILY 90 days tecrippauiib-rweedanl-ivcsrz 1 tab PO DAILY Tobacco use date assessed: 01/08/24 Fall risk assessment: No Falls in past year Last assessed Fall Risk: 01/08/24 Dental Screening Dental Screen Date: 01/08/24 Did you have a dental visit in the last 12 months?: Yes Did you have a dental problem in the last 6 months where you did not have access to dental care?: Yes Was dental information given to patient?: Patient has dentist HPI Annual PE HPI Details 73 year-old lady with hypertension, 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 She is up-to-date with her screening mammogram and bone density scan done earlier this year, both of which came back with benign findings, last colonoscopy was done by Dr. Sood which came back with normal results in 2013. She is due again for a repeat screening. . She has been feeling well with no complaints at present time. [facility] Medical History (Updated 01/08/24 @ 09:12 by Darlyn Garcia MD) Anti-TPO antibodies present History of osteopenia Menopause Essential hypertension Recurrent kidney stones Surgical History History of laparoscopic appendectomy History of cataract surgery Family History Father Acute myocardial infarction Alcoholism Ankylosing spondylitis Mother HTN (hypertension) Thyroid disease Maternal Grandmother Non-insulin dependent diabetes mellitus Sister No problems noted. Sister No problems noted. Daughter No problems noted. Daughter No problems noted. Brother No problems noted. Brother No problems noted. Brother No problems noted. Brother No problems noted. Brother No problems noted. Social History Housing: House Alcohol intake: current Patient Tobacco Use Status: Former Tobacco user Tobacco use type: Cigarette Years Smoked: 5 yrs e-Cigarette/Vaping Use: Never Used Second Hand Smoke Exposure: No service: No Current occupational status: retired Cognitive needs: No Hearing needs: No Vision needs: No Questionnaire PHQ-9 Over the last 2 weeks, how often have you been bothered by any of the following problems? 1. Little interest or pleasure in doing things: not at all 2. Feeling down, depressed, or hopeless: not at all 3. Trouble falling or staying asleep, or sleeping too much: not at all 4. Feeling tired or having little energy: not at all 5. Poor appetite or overeating: not at all 6. Feeling bad about yourself - or that you are a failure or have let yourself or your family down: not at all 7. Trouble concentrating on things, such as reading the newspaper or watching television: not at all 8. Moving or speaking so slowly that other people could have noticed. Or the opposite - being so fidgety or restless that you have been moving around a lot more than usual: not at all 9. Thoughts that you would be better off or of hurting yourself in some way: not at all Total score: 0 Depression Screening Interpretation: Negative Depression Screening Done: Yes 07869 - PHQ-9 Billing: Yes Source: Developed by Drs. Shant Guzman, Elisabeth Sutherland, Danny Yun and colleagues, with an educational milady from [employer]. Thrive Questionnaire Date Thrive assessed: 01/08/24 I am a: Patient What is your living situation today?: I have a steady place to live Within the past 12 months, did the food you bought not last and you didn't have the money to get more?: Never true Within the past 12 months, did you worry whether your food would run out before you got money to buy more?: Never true Do you have trouble paying for medicines?: No Do you have trouble getting transportation to medical appointments?: No Do you have trouble paying your heating and electricity bill?: No Do you have trouble taking care of your child, family member or friend?: No Do you have trouble with day-to-day activities such as bathing, preparing meals, shopping, managing finances, etc.?: No Are you interested in more education?: No Please select the resources that you would like help with: None Currently or been in a relationship where the following occur: No concerns reported THRIVE Score: 0 AUDIT C Alcohol Use Questionnaire (AUDIT-C) 1. How often do you have a drink containing alcohol?: Monthly or less 2. How many drinks containing alcohol do you have on a typical day when you are drinking?: 1 or 2 3. How often do you have six or more drinks on one occasion?: Never Total Score: 1 JACK-7 AMB Questionnaire JACK-7 Date JACK - 7 assessed: 01/08/24 Feeling nervous, anxious, or on edge: 0 = Not at all Not being able to stop or control worryin = Not at all Worrying too much about different things: 0 = Not at all Trouble relaxin = Not at all Being so restless that it is hard to sit still: 0 = Not at all Becoming easily annoyed or irritable: 0 = Not at all Feeling afraid as if something awful might happen: 0 = Not at all Total JACK-7 score (0-4 normal; 5-9 mild; 10-14 moderate; 15-21 severe): 0 Source: Developed by Drs. Shant Guzman, Elisabeth Sutherland, Danny Yun and colleagues, with an educational milady from [employer]. JACK-7 Assessment Billing JACK-7 Assessment Tool: JACK-7 Assessment 61581 Review of Systems Const Denies body aches, Denies fatigue, Denies fever(s), Denies headache(s) and Denies weakness Eyes Details: Currently sees her waste specialist yearly, sees Dr. Garrett Denies change in vision, Denies eye discharge and Denies itchy eyes ENT Denies dizziness, Denies headache(s), Denies nasal congestion, Denies nasal discharge and Denies sore throat Card Denies chest pain, Denies lightheadedness, Denies palpitations and Denies dyspnea Resp Denies chest congestion, Denies cough, Denies dyspnea and Denies wheezing GI Denies abdominal pain, Denies change in bowel habits and Denies heartburn Denies hematuria, Denies urinary frequency, Denies difficulty voiding, Denies dysuria, Denies urinary incontinence and Denies urinary urgency Musc Denies myalgias, Denies arthralgias, Denies joint swelling and Denies limited range of motion Skin/Breast Denies lesions and Denies rash Neuro Denies dizziness, Denies headache(s) and Denies weakness Psych Denies anxiety and Denies depression Endo Denies fatigue, Denies polydipsia, Denies polyuria and Denies palpitations Keith/Lymph Denies easy bruising Aller/Immun Denies itchy eyes, Denies seasonal rhinorrhea and Denies wheezing Physical exam (Primary Care) Vital Signs: Last Vital Signs Pulse 74 01/08/24 08:11 BP 120/72 01/08/24 08:11 Pulse Ox 98 01/08/24 08:11 Oxygen Delivery Method Room Air 01/08/24 08:11 BMI result Body Mass Index 31.6 Tobacco/Smoking Status: Tobacco use Status Tobacco use date assessed 01/08/24 01/08/24 08:14 Patient Tobacco Use Status Former Tobacco user 01/08/24 08:14 Tobacco use type Cigarette 01/08/24 08:14 e-Cigarette/Vaping Use Never Used 01/08/24 08:14 PHQ-9: PHQ-9 Score PHQ-9: Total score 0 01/08/24 08:42 Depression Screening Interpretation: Negative Thrive Assessment: Date of Thrive Assessment Date Thrive assessed 01/08/24 01/08/24 08:14 Currently or been in a relationship where the following occur: No concerns reported Const Orientation/consciousness: patient oriented x3 [facility] Other: Normocephalic atraumatic General nose exam: Normal external nose present and No nasal discharge present Face and sinus: Yes face symmetric Mouth: Normal oral and palatal mucosa present and moist mucous membranes Eyes General: appearance normal, both eyes and all related structures Neck Other: Supple no lymphadenopathy, thyroid gland nonpalpable Neck: Yes full ROM, Yes no lymphadenopathy and Yes supple Chest Breast/axilla palpation: normal palpation of the breasts Resp Other: Clear to auscultation bilaterally Cardio Other: S1-S2 present regular rate and rhythm GI Inspection: Yes normal to inspection Palpation (GI): Soft to palpation, nontender and no guarding General: Yes no CVA tenderness Back/Spine/Pelvis Back: no CVA tenderness and No back tenderness Skin General skin exam: no rashes or lesions noted Neuro General: patient oriented x3, gait normal, Normal light touch and pain sensation, no focal motor deficits and CN's II-XI intact bilaterally Extrem General: Yes full ROM, Yes no joint enlargement, Yes no pedal edema, Yes no calf tenderness and Yes normal gait Psych Appearance: grossly normal and well kempt Mental Status: mental status grossly normal Speech and movement: Normal speech and movement present Affect: normal affect Attitude: cooperative Results Reviewed Results Reviewed: Laboratory Tests 01/04/24 08:32 Hgb 13.5 Hct 40.2 Name: Janie Ji Age/Sex: 73/F : 1950 Unit#: [id number] Attend Dr: Darlyn Garcia MD Re01/04/24 Status: DEP REF Location: [facility] Disch: SPEC : [id number] ADY: 01/04/24 STATUS: COMP REQ : [id number] RECD: 01/04/24-[address]: Darlyn Garcia MD COMP: 01/04/24 ENTERED: 01/04/[address] [facility] [address]: ORDERED: Met Prof Fast, AST, ALT, Lipid Panel, Vitamin D 25-OH, Free T4, TSH Test Result Flag Reference Sodium 143 135-145 mmol/L Potassium 4.5 3.3-5.1 mmol/L CL 108 96-108 mmol/L CO2 29 22-29 mmol/L Gap 11 L 12-20 BUN 15 9-16 mg/dL Creat 0.80 0.5-1.4 mg/dL EGFR > 60 NOTE: For -[place] individuals, multiply the result by 1.210. Chronic Kidney Disease: Estimated GFR < 60 mL/min/1.73m2 Severe Kidney Disease: Estimated GFR < 15 mL/min/1.73m2 FBS 90 60-99 mg/dL CA 9.8 8.4-10.2 mg/dL AST (GOT) 22 5-31 U/L ALT (GPT) 14 0-31 U/L Triglyceride 73 <150 mg/dL Desirable Triglyceride: less than 150 mg/dL Borderline High Triglyceride 150-199 mg/dL High Triglyceride: 200-499 mg/dL Very High Triglyceride: greater than or equal to 5OO mg/dL Cholesterol 209 H <200 mg/dL Desirable Cholesterol: less than 200 mg/dL Borderline High Cholesterol: 200-239 mg/dL High Cholesterol: greater than 239 mg/dL LDL Calculated 126 H <100 mg/dL Desirable LDL: less than 100 mg/dL Near Optimal/Above Optimal LDL: 110-129 mg/dL Borderline High LDL: 130-159 mg/dL High LDL: 160-189 mg/dL Very High LDL: greater than or equal to 190 mg/dL HDL 69 >40 mg/dL Desirable HDL: greater than 40 mg/dL Note: This HDL assay may give artificially low results in patients with liver disease. Vit D 25-OH Tot 50.7 >30 ng/mL Health Based Reference Values* < 20 ng/mL Deficient 20-30 ng/mL Insufficient > 30 ng/mL Sufficient *Anai BEAULIEU. N Engl J Med. 2007;357:266-280 Care must be taken in interpreting Vitamin D results from different laboratories and methodologies. Published data demonstrated that results from patients undergoing hemodialysis may show a negative bias when tested with various automated 25-OH vitamin D assays when compared to LC-MS/MS. When testing samples from patients whose predominant form of Vitamin D is Vitamin D2, such as patients receiving Vitamin D2 supplementation, results that are subtherapeutic should be confirmed with another method such as LC-MS/MS. Free T4 0.76 0.71-1.85 ng/dL TSH 3rd Gen. 13.76 H 0.32-4.0 uIU/mL Note: A sustained TSH level above 2.5 uIU/mL may warrant further investigation. TSH 3rd Generation ([facility]) Coding Level of Care Code Est Pt Prev Care >65y(16914) Diagnoses Annual visit for general adult medical examination with abnormal findings Z00.01 Anti-TPO antibodies present R76.8 Essential hypertension I10 Additional Codes JACK-7 Assessment Billing - JACK-7 Assessment Tool: JACK-7 Assessment 60924 ([id number])
== END 2024-01-08 08:48 | disposition home or self-care (01) ==
PROVIDERS: PCP Internal Medicine; Visit Provider Internal Medicine
DX: Z00.01 Encounter for general adult medical examination with abnormal findings (principal); R76.8 Other specified abnormal immunological findings in serum; I10 Essential (primary) hypertension

== ENCOUNTER → 2024-01-08 08:08 | Outpatient (BNVA) | payer OTHER, SELFPAY | PROVIDERS: PCP Internal Medicine; Visit Provider Internal Medicine | DX: Z00.00 Encounter for general adult medical examination without abnormal findings (principal); R76.8 Other specified abnormal immunological findings in serum; I10 Essential (primary) hypertension | CPT/HCPCS: 96127 ==

== ENCOUNTER 2024-04-26 08:47 | Outpatient (REF) | payer BC, SELFPAY ==
[2024-04-26 12:51] LABS: Cholesterol 189 mg/dL (<200); Free T4 (Free Thyroxine) 0.78 ng/dL (0.71-1.85); HDL Cholesterol 61 mg/dL (>40); LDL Cholesterol Calculated 116 mg/dL (<100); Triglycerides 62 mg/dL (<150)
[2024-04-28 18:09] LABS: Thyroid Peroxidase Antibodies 383 IU/mL (<9)
== END 2024-04-26 08:48 | disposition home or self-care (01) ==
LOC: HO.HMGCLDS 08:47
PROVIDERS: PCP Internal Medicine; Visit Provider Internal Medicine
DX: I10 Essential (primary) hypertension (principal); R76.8 Other specified abnormal immunological findings in serum
CPT/HCPCS: 36415; 80061; 84439; 84443; 86376

== ENCOUNTER 2024-05-08 09:50 | Outpatient (REF) | payer BC, SELFPAY | END 2024-05-08 09:51 | disposition home or self-care (01) | LOC: HO.MAMMO 09:50 | PROVIDERS: PCP Internal Medicine; Visit Provider Internal Medicine | DX: Z12.31 Encounter for screening mammogram for malignant neoplasm of breast (principal) | CPT/HCPCS: 77063; 77067 ==

== ENCOUNTER → 2024-05-08 10:00 | Outpatient (BNV) | payer BC, SELFPAY | PROVIDERS: PCP Internal Medicine; Visit Provider Internal Medicine | DX: Z12.31 Encounter for screening mammogram for malignant neoplasm of breast (principal) | CPT/HCPCS: 77063; 77067 ==

== ENCOUNTER 2024-05-23 10:23 | Outpatient (AMB) | payer BC, SELFPAY ==
--- NOTE | 2024-05-23 10:20 | A.OFFPC_ITS ---
Intake Visit Reasons: android [phone] discuss lab results Allergies codeine Allergy (Unknown, Verified 05/23/24 10:37) tachycardia hydromorphone [Dilaudid] Adverse Reaction (Unknown, Verified 05/23/24 10:37) vomiting Hydrocodone-Acetaminophen Adverse Reaction (Unknown, Uncoded 05/23/24 10:37) palpitations , twitching Medication List - Last Reconciled 05/23/24 by Darlyn Garcia MD cholecalciferol (vitamin D3) 50 mcg PO DAILY losartan 25 mg PO DAILY 90 days mlschpgxevtt-cbckezin-lcqcqo 1 tab PO DAILY Tobacco use date assessed: 05/23/24 Fall risk assessment: No Falls in past year Last assessed Fall Risk: 05/23/24 Dental Screening Dental Screen Date: 05/23/24 Did you have a dental visit in the last 12 months?: Yes Did you have a dental problem in the last 6 months where you did not have access to dental care?: No Was dental information given to patient?: Patient has dentist HPI android [phone] discuss lab results HPI Details 74-year-old lady with history of hyperte nsion and elevated TSH level, here today for follow-up. She has been feeling well, with a complains of chest pain, no palpitations, no fatigue issues, no alteration in bowel habits. Her recent fasting labs showed improvement in her fasting lipids with LDL cholesterol now down to 116 mg/ dL lower total cholesterol, with normal triglycerides and HDL cholesterol. Her TSH level is decreasing, with normal free T4 levels. She has been feeling well, with no complaints at present time. [facility] Medical History (Updated 05/24/24 @ 03:23 by Darlyn Garcia MD) Elevated TSH Dyslipidemia Anti-TPO antibodies present History of osteopenia Menopause Essential hypertension Recurrent kidney stones Surgical History History of laparoscopic appendectomy History of cataract surgery Family History Father Acute myocardial infarction Alcoholism Ankylosing spondylitis Mother HTN (hypertension) Thyroid disease Maternal Grandmother Non-insulin dependent diabetes mellitus Sister No problems noted. Sister No problems noted. Daughter No problems noted. Daughter No problems noted. Brother No problems noted. Brother No problems noted. Brother No problems noted. Brother No problems noted. Brother No problems noted. Social History Housing: House Alcohol intake: current Patient Tobacco Use Status: Former Tobacco user Tobacco use type: Cigarette Years Smoked: 5 yrs e-Cigarette/Vaping Use: Never Used Second Hand Smoke Exposure: No service: No Current occupational status: retired Cognitive needs: No Hearing needs: No Vision needs: No Questionnaire PHQ-9 Over the last 2 weeks, how often have you been bothered by any of the following problems? 1. Little interest or pleasure in doing things: not at all 2. Feeling down, depressed, or hopeless: not at all 3. Trouble falling or staying asleep, or sleeping too much: not at all 4. Feeling tired or having little energy: not at all 5. Poor appetite or overeating: not at all 6. Feeling bad about yourself - or that you are a failure or have let yourself or your family down: not at all 7. Trouble concentrating on things, such as reading the newspaper or watching television: not at all 8. Moving or speaking so slowly that other people could have noticed. Or the opposite - being so fidgety or restless that you have been moving around a lot more than usual: not at all 9. Thoughts that you would be better off or of hurting yourself in some way: not at all Total score: 0 Depression Screening Interpretation: Negative Depression Screening Done: Yes 18423 - PHQ-9 Billing: Yes Source: Developed by Drs. Shant Guzman, Elisabeth Sutherland, Danny Yun and colleagues, with an educational milady from [employer]. Thrive Questionnaire Date Thrive assessed: 05/23/24 I am a: Patient What is your living situation today?: I have a steady place to live Within the past 12 months, did the food you bought not last and you didn't have the money to get more?: Never true Within the past 12 months, did you worry whether your food would run out before you got money to buy more?: Never true Do you have trouble paying for medicines?: No Do you have trouble getting transportation to medical appointments?: No Do you have trouble paying your heating and electricity bill?: No Do you have trouble taking care of your child, family member or friend?: No Do you have trouble with day-to-day activities such as bathing, preparing meals, shopping, managing finances, etc.?: No Are you currently unemployed and looking for a job?: No Are you interested in more education?: No THRIVE Score: 0 AUDIT C Alcohol Use Questionnaire (AUDIT-C) 1. How often do you have a drink containing alcohol?: Never Total Score: 0 JACK-7 AMB Questionnaire JACK-7 Date JACK - 7 assessed: 05/23/24 Feeling nervous, anxious, or on edge: 0 = Not at all Not being able to stop or control worryin = Not at all Worrying too much about different things: 0 = Not at all Trouble relaxin = Not at all Being so restless that it is hard to sit still: 0 = Not at all Becoming easily annoyed or irritable: 0 = Not at all Feeling afraid as if something awful might happen: 0 = Not at all Total JACK-7 score (0-4 normal; 5-9 mild; 10-14 moderate; 15-21 severe): 0 Source: Developed by Drs. Shant Guzman, Elisabeth Sutherland, Danny Yun and colleagues, with an educational milady from [employer]. 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 Garrett Denies change in vision ENT Denies dizziness, Denies headache(s) and Denies nasal congestion Card Denies chest pain, Denies lightheadedness, Denies palpitations and Denies dyspnea Resp Denies chest congestion, Denies cough, Denies dyspnea and Denies wheezing GI Denies abdominal pain, Denies change in bowel habits and Denies heartburn Denies hematuria, Denies urinary frequency, Denies difficulty voiding, Denies dysuria and Denies urinary incontinence Musc Denies myalgias, Denies arthralgias, Denies joint swelling and Denies limited range of motion Skin/Breast Denies lesions and Denies rash Neuro Denies dizziness, Denies headache(s) and Denies weakness Psych Denies anxiety and Denies depression Endo Denies fatigue, Denies polydipsia, Denies polyuria and Denies palpitations Keith/Lymph Denies easy bruising Aller/Immun Denies seasonal rhinorrhea and Denies wheezing Physical exam (Primary Care) Tobacco/Smoking Status: Tobacco use Status Tobacco use date assessed 05/23/24 05/23/24 10:21 Patient Tobacco Use Status Former Tobacco user 05/23/24 10:21 Tobacco use type Cigarette 05/23/24 10:21 e-Cigarette/Vaping Use Never Used 05/23/24 10:21 PHQ-9: PHQ-9 Score PHQ-9: Total score 0 05/24/24 03:20 Depression Screening Interpretation: Negative Thrive Assessment: Date of Thrive Assessment Date Thrive assessed 05/23/24 05/23/24 10:22 Telehealth Telehealth Telehealth Platform: [employer] Location of provider rendering services: practice address Location of patient: address on file Patient Identification confirmed using: Name, : Yes Telehealth method: video Patient verbally consented to treatment: Yes Patient verbally consented to billing insurance company: Yes Patient informed of any privacy concerns related to visit: Yes Minutes spent on Phone/Video with Pt.: 15 Results Reviewed Results Reviewed: Laboratory Tests 01/04/24 04/26/24 08:32 08:54 Triglycerides 73 62 Cholesterol 209 H 189 LDL Cholesterol, Calc 126 H 116 H HDL Cholesterol 69 61 TSH 13.76 H 11.80 H Free T4 0.76 0.78 Coding Level of Care Code Tele Est Pt Level 3 (52267) Diagnoses Dyslipidemia E78.5 Elevated TSH R79.89 Additional Codes PHQ-9 - 08456 - PHQ-9 Billing: Yes ([id number]) JACK-7 Assessment Billing - JACK-7 Assessment Tool: JACK-7 Assessment 45577 ([id number]) Assessment & Plan Assessment & Plan (1) Dyslipidemia: Code(s): E78.5 - Hyperlipidemia, unspecified Category: Medical Plan: Improvement in her total cholesterol and LDL cholesterol noted with normal triglycerides and HDL cholesterol seen and latest labs done. (2) Elevated TSH: Code(s): R79.89 - Other specified abnormal findings of blood chemistry Category: Medical Plan: Discussed results of latest thyroid tests with patient, with TSH level still elevated but lower than last check, with normal free T4. Patient denies any symptoms of hypothyroidism. Will continue to observe repeat another level in 2 months
== END 2024-05-23 11:17 | disposition home or self-care (01) ==
LOC: HO.HMCC 10:23
PROVIDERS: PCP Internal Medicine; Visit Provider Internal Medicine
DX: E78.5 Hyperlipidemia, unspecified (principal); R79.89 Other specified abnormal findings of blood chemistry

== ENCOUNTER → 2024-05-23 10:23 | Outpatient (BNVA) | payer BC, SELFPAY | PROVIDERS: PCP Internal Medicine; Visit Provider Internal Medicine | DX: E78.5 Hyperlipidemia, unspecified (principal); R94.6 Abnormal results of thyroid function studies; I10 Essential (primary) hypertension | CPT/HCPCS: 96127 ==

== ENCOUNTER 2024-07-09 08:59 | Outpatient (REF) | payer BC, SELFPAY ==
[2024-07-09 11:24] LABS: Alanine Aminotransferase 13 U/L (0-31); Anion Gap 11 (12-20); Aspartate Amino Transferase 24 U/L (5-31); Blood Urea Nitrogen 18 mg/dL (9-16); Calcium 9.6 mg/dL (8.4-10.2); Carbon Dioxide 27 mmol/L (22-29); Chloride 106 mmol/L (96-108); Estimated Glomerular Filt Rate > 60; Glucose Fasting 90 mg/dL (60-99); Potassium 4.4 mmol/L (3.3-5.1); Sodium 140 mmol/L (135-145)
[2024-07-09 11:43] LABS: Free T4 (Free Thyroxine) 0.75 ng/dL (0.71-1.85); Thyroid Stimulating Hormone 15.45 uIU/mL (0.32-4.0); Vitamin D 25-OH Total 53.6 ng/mL (>30)
[2024-07-10 23:24] LABS: Thyroid Peroxidase Antibodies 444 IU/mL (<9)
== END 2024-07-09 09:00 | disposition home or self-care (01) ==
LOC: HO.HMGCLDS 08:59
PROVIDERS: PCP Internal Medicine; Visit Provider Internal Medicine
DX: I10 Essential (primary) hypertension (principal); R76.8 Other specified abnormal immunological findings in serum; Z78.0 Asymptomatic menopausal state
CPT/HCPCS: 36415; 80048; 82306; 84439; 84443; 84450; 84460; 86376

== ENCOUNTER 2024-07-14 07:59 | Outpatient (AMB) | payer OTHER, SELFPAY ==
[2024-07-14 08:03] VITALS: BP 110/60; PULSE 71; RESP 15; TEMP 36.8; O2SAT 99; BMI 31.4
--- NOTE | 2024-07-14 08:03 | A.OFFPC_ITS ---
Vital Signs 07/14/24 08:03 Height 5 ft Weight 161 lb BMI 31.4 BP 110/60 Blood Pressure Location Rt brachial Position Sitting Respiration 15 Pulse 71 Pulse Source Pulse Oximeter Temp 98.2 F Temp Source Oral Pulse Oximetry (%) 99 Oxygen Delivery Method Room Air Intake Visit Reasons: 6 months f/up Intake Note: Pt is here today for her 6mo. f/u Allergies codeine Allergy (Unknown, Verified 07/14/24 08:28) tachycardia hydromorphone [Dilaudid] Adverse Reaction (Unknown, Verified 07/14/24 08:28) vomiting Hydrocodone-Acetaminophen Adverse Reaction (Unknown, Uncoded 07/14/24 08:28) palpitations , twitching Medication List - Last Reconciled 07/14/24 by Darlyn Garcia MD cholecalciferol (vitamin D3) 50 mcg PO DAILY losartan 25 mg PO DAILY 90 days pohidkxwjrtv-uqslonxu-qagwwb 1 tab PO DAILY Tobacco use date assessed: 07/14/24 Fall risk assessment: No Falls in past year Last assessed Fall Risk: 07/14/24 Dental Screening Dental Screen Date: 05/23/24 Did you have a dental visit in the last 12 months?: Yes Did you have a dental problem in the last 6 months where you did not have access to dental care?: No Was dental information given to patient?: Patient has dentist HPI 6 months f/up HPI Details 74 year-old lady with history of hyperte nsion and elevated TSH level, here today for follow-up. She has been feeling well, with no chest pain, no palpitations, no fatigue issues, no alteration in bowel habits reported. Compliant with taking her medications. PENDING SALE TO [facility] Medical History Elevated TSH Dyslipidemia Anti-TPO antibodies present History of osteopenia Menopause Essential hypertension Recurrent kidney stones Surgical History History of laparoscopic appendectomy History of cataract surgery Family History Father Acute myocardial infarction Alcoholism Ankylosing spondylitis Mother HTN (hypertension) Thyroid disease Maternal Grandmother Non-insulin dependent diabetes mellitus Sister Hypothyroidism (acquired) Sister Heart disease Daughter No problems noted. Daughter No problems noted. Brother No problems noted. Brother No problems noted. Brother No problems noted. Brother No problems noted. Brother No problems noted. Social History Housing: House Alcohol intake: current Patient Tobacco Use Status: Former Tobacco user Tobacco use type: Cigarette Years Smoked: 5 yrs e-Cigarette/Vaping Use: Never Used Second Hand Smoke Exposure: No service: No Current occupational status: retired Cognitive needs: No Hearing needs: No Vision needs: No Questionnaire PHQ-9 Over the last 2 weeks, how often have you been bothered by any of the following problems? 1. Little interest or pleasure in doing things: not at all 2. Feeling down, depressed, or hopeless: not at all 3. Trouble falling or staying asleep, or sleeping too much: not at all 4. Feeling tired or having little energy: not at all 5. Poor appetite or overeating: not at all 6. Feeling bad about yourself - or that you are a failure or have let yourself or your family down: not at all 7. Trouble concentrating on things, such as reading the newspaper or watching television: not at all 8. Moving or speaking so slowly that other people could have noticed. Or the opposite - being so fidgety or restless that you have been moving around a lot more than usual: not at all 9. Thoughts that you would be better off or of hurting yourself in some way: not at all Total score: 0 Depression Screening Interpretation: Negative Depression Screening Done: Yes Source: Developed by Drs. Shant Guzman, Elisabeth Sutherland, Danny Yun and colleagues, with an educational milady from [employer]. Thrive Questionnaire Date Thrive assessed: 05/23/24 I am a: Patient What is your living situation today?: I have a steady place to live Within the past 12 months, did the food you bought not last and you didn't have the money to get more?: Never true Within the past 12 months, did you worry whether your food would run out before you got money to buy more?: Never true Do you have trouble paying for medicines?: No Do you have trouble getting transportation to medical appointments?: No Do you have trouble paying your heating and electricity bill?: No Do you have trouble taking care of your child, family member or friend?: No Do you have trouble with day-to-day activities such as bathing, preparing meals, shopping, managing finances, etc.?: No Are you currently unemployed and looking for a job?: No Are you interested in more education?: No Please select the resources that you would like help with: None Currently or been in a relationship where the following occur: No concerns reported THRIVE Score: 0 AUDIT C Alcohol Use Questionnaire (AUDIT-C) 1. How often do you have a drink containing alcohol?: Monthly or less 2. How many drinks containing alcohol do you have on a typical day when you are drinking?: 1 or 2 3. How often do you have six or more drinks on one occasion?: Never Total Score: 1 JACK-7 AMB Questionnaire JACK-7 Date JACK - 7 assessed: 05/23/24 Feeling nervous, anxious, or on edge: 0 = Not at all Not being able to stop or control worryin = Not at all Worrying too much about different things: 0 = Not at all Trouble relaxin = Not at all Being so restless that it is hard to sit still: 0 = Not at all Becoming easily annoyed or irritable: 0 = Not at all Feeling afraid as if something awful might happen: 0 = Not at all Total JACK-7 score (0-4 normal; 5-9 mild; 10-14 moderate; 15-21 severe): 0 Source: Developed by Drs. Shant Guzman, Elisabeth Sutherland, Danny Yun and colleagues, with an educational milady from [employer]. 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 Garrett Denies change in vision ENT Denies dizziness, Denies headache(s) and Denies nasal congestion Card Denies chest pain, Denies lightheadedness, Denies palpitations and Denies dyspnea Resp Denies chest congestion, Denies cough, Denies dyspnea and Denies wheezing GI Denies abdominal pain, Denies change in bowel habits and Denies heartburn Denies hematuria, Denies urinary frequency, Denies difficulty voiding, Denies dysuria and Denies urinary incontinence Musc Denies myalgias, Denies arthralgias, Denies joint swelling and Denies limited range of motion Skin/Breast Denies lesions and Denies rash Neuro Denies dizziness, Denies headache(s) and Denies weakness Psych Denies anxiety and Denies depression Endo Denies fatigue, Denies polydipsia, Denies polyuria and Denies palpitations Keith/Lymph Denies easy bruising Aller/Immun Denies seasonal rhinorrhea and Denies wheezing Physical exam (Primary Care) Vital Signs: Last Vital Signs Temp 98.2 F 07/14/24 08:03 Pulse 71 07/14/24 08:03 Resp 15 07/14/24 08:03 BP 110/60 07/14/24 08:03 Pulse Ox 99 07/14/24 08:03 Oxygen Delivery Method Room Air 07/14/24 08:03 BMI result Body Mass Index 31.4 Tobacco/Smoking Status: Tobacco use Status Tobacco use date assessed 07/14/24 07/14/24 08:07 Patient Tobacco Use Status Former Tobacco user 07/14/24 08:07 Tobacco use type Cigarette 07/14/24 08:07 e-Cigarette/Vaping Use Never Used 07/14/24 08:07 PHQ-9: PHQ-9 Score PHQ-9: Total score 0 07/14/24 09:28 Depression Screening Interpretation: Negative Thrive Assessment: Date of Thrive Assessment Date Thrive assessed 05/23/24 07/14/24 08:07 Currently or been in a relationship where the following occur: No concerns reported Const Orientation/consciousness: patient oriented x3 [facility] Other: Normocephalic atraumatic General nose exam: Normal external nose present and No nasal discharge present Face and sinus: Yes face symmetric Mouth: Normal oral and palatal mucosa present and moist mucous membranes Eyes General: appearance normal, both eyes and all related structures Neck Other: Supple no lymphadenopathy, thyroid gland nonpalpable Neck: Yes full ROM, Yes no lymphadenopathy and Yes supple Chest Breast/axilla palpation: normal palpation of the breasts Resp Other: Clear to auscultation bilaterally Cardio Other: S1-S2 present regular rate and rhythm GI Inspection: Yes normal to inspection Palpation (GI): Soft to palpation, nontender and no guarding General: Yes no CVA tenderness Back/Spine/Pelvis Back: no CVA tenderness and No back tenderness Skin General skin exam: no rashes or lesions noted Neuro General: patient oriented x3, gait normal, Normal light touch and pain sensation, no focal motor deficits and CN's II-XI intact bilaterally Extrem General: Yes full ROM, Yes no joint enlargement, Yes no pedal edema, Yes no calf tenderness and Yes normal gait Psych Appearance: grossly normal and well kempt Mental Status: mental status grossly normal Speech and movement: Normal speech and movement present Affect: normal affect Attitude: cooperative Results Reviewed Results Reviewed: Name: Janie Ji Age/Sex: 74/F : 1950 Unit#: [id number] Attend Dr: Darlyn Garcia MD Re07/09/24 Status: DEP REF Location: [facility] Disch: SPEC : [id number] ADY: 07/09/24 STATUS: COMP REQ : [id number] RECD: 07/09/[address]: Darlyn Garcia MD COMP: 07/09/24 ENTERED: 07/09/[address]: ORDERED: Met Prof Fast, AST, ALT, Vitamin D 25-OH, Free T4, TSH Test Result Flag Reference Sodium 140 135-145 mmol/L Potassium 4.4 3.3-5.1 mmol/L CL 106 96-108 mmol/L CO2 27 22-29 mmol/L Gap 11 L 12-20 BUN 18 H 9-16 mg/dL Creat 0.77 0.5-1.4 mg/dL eGFR > 60 Chronic Kidney Disease: Estimated GFR < 60 mL/min/1.73m2 Severe Kidney Disease: Estimated GFR < 15 mL/min/1.73m2 FBS 90 60-99 mg/dL CA 9.6 8.4-10.2 mg/dL AST (GOT) 24 5-31 U/L ALT (GPT) 13 0-31 U/L Vitamin D 25-OH 53.6 >30 ng/mL Health Based Reference Values* < 20 ng/mL Deficient 20-30 ng/mL Insufficient > 30 ng/mL Sufficient *Anai BEAULIEU. N Engl J Med. 2007;[id number]:[id number] There is no well-established upper level of normal vitamin D levels. Some laboratories use 50 ng/mL as an upper limit of normal. However, toxicity is patient-dependent and may occur at any level. Careful correlation with the patient's presentation is necessary and, if there is concern for vitamin D toxicity, treatment should be considered irrespective of the serum level. Care must be taken in interpreting Vitamin D results from different laboratories and methodologies. Published data demonstrated that results from patients undergoing hemodialysis may show a negative bias when tested with various automated 25-OH vitamin D assays when compared to LC-MS/MS. When testing samples from patients whose predominant form of Vitamin D is Vitamin D2, such as patients receiving Vitamin D2 supplementation, results that are subtherapeutic should be confirmed with another method such as LC-MS/MS. Free T4 0.75 0.71-1.85 ng/dL TSH 3rd Gen. 15.45 H 0.32-4.0 uIU/mL Note: A sustained TSH level above 2.5 uIU/mL may warrant further investigation. TSH 3rd Generation ([facility]) Coding Level of Care Code Est Pt Level 4 (60153) Complex EM visit Add On G2211 Diagnoses Essential hypertension I10 Elevated TSH R79.89 Assessment & Plan Assessment & Plan (1) Essential hypertension: Code(s): I10 - Essential (primary) hypertension Category: Medical Plan: Blood pressure at goal of less than 130/80. Continue with losartan 25 mg daily. Reinforced importance of following a low sodium diet, getting regular exercis e, and lowering stress levels. (2) Elevated TSH: Code(s): R79.89 - Other specified abnormal findings of blood chemistry Category: Medical Plan: Latest thyroid levels are showing TSH elevation with low normal free T4. Patient however states that she has been feeling well , denies any increased fatigue issues, no alteration in bowel habits, no chest pain shortness of breath, no low energy reported. Continue to monitor thyroid levels. Repeat fa sting labs ordered again for October 2024 Orders: Orders Free T4 (Free Thyroxine) 10/11/24 E78.5 - Hyperlipidemia, unspecified, I10 - Essential (primary) hypertension, R76.8 - Other specified abnormal immunological findings in serum, R79.89 - Other specified abnormal findings of blood research and development chemist ry Lipid Panel 10/11/24 E78.5 - Hyperlipidemia, unspecified, I10 - Essential (primary) hypertension, R76.8 - Other specified abnormal immunological findings in serum, R79.89 - Other specified abnormal findings of blood chemistry Alanine Aminotransferase 10/11/24 E78.5 - Hyperlipidemia, unspecified, I10 - Essential (primary) hypertension, R76.8 - Other specified abnormal immunological findings in serum, R79.89 - Other specified abnormal findings of blood chemistry AMB Hemoglobin A1c 10/11/24 E78.5 - Hyperlipidemia, unspecified, I10 - Essential (primary) hypertension, R76.8 - Other specified abnormal immunological findings in serum, R79.89 - Other specified abnormal findings of blood chemistry Thyroid Stimulating Hormone 10/11/24 E78.5 - Hyperlipidemia, unspecified, I10 - Essential (primary) hypertension, R76.8 - Other specified abnormal immunological findings in serum, R79.89 - Other specified abnormal findings of blood chemistry Thyroid Peroxidase Antibodies 10/11/24 E78.5 - Hyperlipidemia, unspecified, I10 - Essential (primary) hypertension, R76.8 - Other specified abnormal immunological findings in serum, R79.89 - Other specified abnormal findings of blood chemistry Medications: Refilled losartan 25 mg PO DAILY 90 tabs 4RF 90 days I10 - Essential (primary) hypertension
== END 2024-07-14 10:17 | disposition home or self-care (01) ==
LOC: HO.HMCC 07:59
PROVIDERS: PCP Internal Medicine; Visit Provider Internal Medicine
DX: I10 Essential (primary) hypertension (principal); R79.89 Other specified abnormal findings of blood chemistry

== ENCOUNTER → 2024-07-14 07:59 | Outpatient (BNVA) | payer BC, SELFPAY | PROVIDERS: PCP Internal Medicine; Visit Provider Internal Medicine | DX: Z13.89 Encounter for screening for other disorder (principal) ==

== ENCOUNTER 2024-10-27 08:30 | Outpatient (REF) | payer BC, SELFPAY ==
[2024-10-27 10:32] LABS: Alanine Aminotransferase 15 U/L (0-31); Cholesterol 199 mg/dL (<200); HDL Cholesterol 65 mg/dL (>40); Triglycerides 57 mg/dL (<150)
[2024-10-27 11:02] LABS: Free T4 (Free Thyroxine) 0.80 ng/dL (0.71-1.85); Thyroid Stimulating Hormone 15.54 uIU/mL (0.32-4.0)
== END 2024-10-27 08:31 | disposition home or self-care (01) ==
LOC: HO.HMGCLDS 08:30
PROVIDERS: PCP Internal Medicine; Visit Provider Internal Medicine
DX: R79.89 Other specified abnormal findings of blood chemistry (principal); R76.8 Other specified abnormal immunological findings in serum; E78.5 Hyperlipidemia, unspecified; I10 Essential (primary) hypertension
CPT/HCPCS: 36415; 80061; 84439; 84443; 84460; 86376

== ENCOUNTER 2024-11-14 08:43 | Outpatient (AMB) | payer BC, SELFPAY ==
--- NOTE | 2024-11-14 08:55 | A.OFFPC_ITS ---
Intake Visit Reasons: r/s from 10/31 call to [phone] Head Rigger Required: No Accompanied by: Self / Same As Patient Allergies codeine Allergy (Unknown, Verified 11/14/24 09:07) tachycardia hydromorphone (Dilaudid) Adverse Reaction (Unknown, Verified 11/14/24 09:07) vomiting Hydrocodone-Acetaminophen Adverse Reaction (Unknown, Uncoded 11/14/24 09:07) palpitations , twitching Medication List - Last Reconciled 11/14/24 by Darlyn Garcia MD cholecalciferol (vitamin D3) 50 mcg PO DAILY losartan 25 mg PO DAILY 90 days eqkgxoxsmlms-ipyryeuj-dtxykt 1 tab PO DAILY Tobacco use date assessed: 07/14/24 Fall risk assessment: No Falls in past year Last assessed Fall Risk: 11/14/24 Dental Screening Dental Screen Date: 11/14/24 Did you have a dental visit in the last 12 months?: Yes Did you have a dental problem in the last 6 months where you did not have access to dental care?: No Was dental information given to patient?: Patient has dentist [facility] Medical History Elevated TSH Dyslipidemia Anti-TPO antibodies present History of osteopenia Menopause Essential hypertension Recurrent kidney stones Surgical History History of laparoscopic appendectomy History of cataract surgery Family History Father Acute myocardial infarction Alcoholism Ankylosing spondylitis Mother HTN (hypertension) Thyroid disease Maternal Grandmother Non-insulin dependent diabetes mellitus Sister Hypothyroidism (acquired) Sister Heart disease Daughter No problems noted. Daughter No problems noted. Brother No problems noted. Brother No problems noted. Brother No problems noted. Brother No problems noted. Brother No problems noted. Social History Housing: House Alcohol intake: current Patient Tobacco Use Status: Former Tobacco user Tobacco use type: Cigarette Years Smoked: 5 yrs e-Cigarette/Vaping Use: Never Used Second Hand Smoke Exposure: No service: No Current occupational status: retired Current occupational exposures/hazards: No Cognitive needs: No Hearing needs: No Vision needs: No Questionnaire Thrive Questionnaire Date Thrive assessed: 05/23/24 JACK-7 AMB Questionnaire JACK-7 Date JACK - 7 assessed: 05/23/24 Source: Developed by Drs. Shant Guzman, Elisabeth Sutherland, Danny Yun and colleagues, with an educational milady from [employer]. 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 Garrett Denies change in vision ENT Denies dizziness, Denies headache(s) and Denies nasal congestion Card Denies chest pain, Denies lightheadedness, Denies palpitations and Denies dys pnea Resp Denies chest congestion, Denies cough, Denies dyspnea and Denies wheezing GI Denies abdominal pain, Denies change in bowel habits and Denies heartburn Denies hematuria, Denies urinary frequency, Denies difficulty voiding, Denies dysuria and Denies urinary incontinence Musc Denies myalgias, Denies arthralgias, Denies joint swelling and Denies limited range of motion Skin/Breast Denies lesions and Denies rash Neuro Denies dizziness, Denies headache(s) and Denies weakness Psych Denies anxiety and Denies depression Endo Denies fatigue, Denies polydipsia, Denies polyuria and Denies palpitations Keith/Lymph Denies easy bruising Aller/Immun Denies seasonal rhinorrhea and Denies wheezing Physical exam (Primary Care) Tobacco/Smoking Status: Tobacco use Status Tobacco use date assessed 07/14/24 11/14/24 08:56 Patient Tobacco Use Status Former Tobacco user 11/14/24 08:56 Tobacco use type Cigarette 11/14/24 08:56 e-Cigarette/Vaping Use Never Used 11/14/24 08:56 Thrive Assessment: Date of Thrive Assessment Date Thrive assessed 05/23/24 11/14/24 08:56 Telehealth Telehealth Telehealth Platform: [facility] Location of provider rendering services: practice address Location of patient: address on file Patient Identification confirmed using: Name, : Yes Telehealth method: video Patient verbally consented to treatment: Yes Patient verbally consented to billing insurance company: Yes Patient informed of any privacy concerns related to visit: Yes Minutes spent on Phone/Video with Pt.: 15 Results Reviewed Results Reviewed: Name: Janie Ji Age/Sex: 74/F : 1950 Unit#: [id number] Attend Dr: Darlyn Garcia MD Re10/27/24 Status: DEP REF Location: [facility] Disch: SPEC : [id number] ADY: 10/27/24 STATUS: COMP REQ : [id number] RECD: 10/27/24-[address]: Darlyn Garcia MD COMP: 10/27/24 ENTERED: 10/27/[address]: ORDERED: ALT, Lipid Panel, Free T4, TSH Test Result Flag Reference ALT (GPT) 15 0-31 U/L Triglyceride 57 <150 mg/dL Desirable Triglyceride: less than 150 mg/dL Borderline High Triglyceride 150-199 mg/dL High Triglyceride: 200-499 mg/dL Very High Triglyceride: greater than or equal to 5OO mg/dL Cholesterol 199 <200 mg/dL Desirable Cholesterol: less than 200 mg/dL Borderline High Cholesterol: 200-239 mg/dL High Cholesterol: greater than 239 mg/dL LDL Calculated 123 H <100 mg/dL Desirable LDL: less than 100 mg/dL Near Optimal/Above Optimal LDL: 110-129 mg/dL Borderline High LDL: 130-159 mg/dL High LDL: 160-189 mg/dL Very High LDL: greater than or equal to 190 mg/dL HDL 65 >40 mg/dL Desirable HDL: greater than 40 mg/dL Note: This HDL assay may give artificially low results in patients with liver disease. Free T4 0.80 0.71-1.85 ng/dL TSH 3rd Gen. 15.54 H 0.32-4.0 uIU/mL Note: A sustained TSH level above 2.5 uIU/mL may warrant further investigation. TSH 3rd Generation ([facility]) Coding Level of Care Code Tele Est Pt Level 4 (17012) Complex EM visit Add On G2211 Diagnoses Essential hypertension I10 Dyslipidemia E78.5 Elevated TSH R79.89 Assessment & Plan Assessment & Plan (1) Essential hypertension: Code(s): I10 - Essential (primary) hypertension Category: Medical Plan: Continued on losartan 25 mg daily (2) Dyslipidemia: Code(s): E78.5 - Hyperlipidemia, unspecified Category: Medical Plan: Reviewed recent fasting lipid profile with patient with levels within normal limits except for mildly elevated LDL cholesterol. . Continue with adherence to low-cholesterol diet and regular exercise, at least 30 minutes 3 to 4 times a week. Advised patient to make healthy food choices, eat more fruits, vegetables, whole grains, wild caught fish and low-fat dairy. Limit amount of meat and fried or fatty food products, as well as processed foods and fast foods. (3) Elevated TSH: Code(s): R79.89 - Other specified abnormal findings of blood chemistry Category: Medical Plan: Reviewed recent thyroid levels with patient which showed elevated TSH at 15 with a free T4 within normal limits but on the lower end of the spectrum. She states that she feels well , no complaints of any alteration in bowel habits, no dry skin no problems swallowing no increased fatigue or abnormal weight gain weight loss reported. Will continue to monitor thyroid levels Orders: Orders Free T4 (Free Thyroxine) 03/09/25 E78.5 - Hyperlipidemia, unspecified, I10 - Essential (primary) hypertension, R76.8 - Other specified abnormal immunological findings in serum, R79.89 - Other specified abnormal findings of blood chemistry, Z78.0 - Asymptomatic menopausal state Lipid Panel 03/09/25 E78.5 - Hyperlipidemia, unspecified, I10 - Essential (primary) hypertension, R76.8 - Other specified abnormal immunological findings in serum, R79.89 - Other specified abnormal findings of blood chemistry, Z78.0 - Asymptomatic menopausal state Vitamin D 25-OH Total 03/09/25 E78.5 - Hyperlipidemia, unspecified, I10 - Essential (primary) hypertension, R76.8 - Other specified abnormal immunological findings in serum, R79.89 - Other specified abnormal findings of blood chemistry, Z78.0 - Asymptomatic menopausal state Alanine Aminotransferase 03/09/25 E78.5 - Hyperlipidemia, unspecified, I10 - Essential (primary) hypertension, R76.8 - Other specified abnormal immunological findings in serum, R79.89 - Other specified abnormal findings of blood chemistry, Z78.0 - Asymptomatic menopausal state Thyroid Stimulating Hormone 03/09/25 E78.5 - Hyperlipidemia, unspecified, I10 - Essential (primary) hypertension, R76.8 - Other specified abnormal immunological findings in serum, R79.89 - Other specified abnormal findings of blood chemistry, Z78.0 - Asymptomatic menopausal state Thyroid Peroxidase Antibodies 03/09/25 E78.5 - Hyperlipidemia, unspecified, I10 - Essential (primary) hypertension, R76.8 - Other specified abnormal immunological findings in serum, R79.89 - Other specified abnormal findings of blood chemistry, Z78.0 - Asymptomatic menopausal state Triiodothyronine T3 Free 03/09/25 E78.5 - Hyperlipidemia, unspecified, I10 - Essential (primary) hypertension, R76.8 - Other specified abnormal immunological findings in serum, R79.89 - Other specified abnormal findings of blood chemistry, Z78.0 - Asymptomatic menopausal state Basic Metabolic Panel Fasting 03/09/25 E78.5 - Hyperlipidemia, unspecified, I10 - Essential (primary) hypertension, R76.8 - Other specified abnormal immunological findings in serum, R79.89 - Other specified abnormal findings of blood chemistry, Z78.0 - Asymptomatic menopausal state Aspartate Amino Transferase 03/09/25 E78.5 - Hyperlipidemia, unspecified, I10 - Essential (primary) hypertension, R76.8 - Other specified abnormal immunological findings in serum, R79.89 - Other specified abnormal findings of blood chemistry, Z78.0 - Asymptomatic menopausal state
== END 2024-11-14 09:35 | disposition home or self-care (01) ==
LOC: HO.HMCC 08:43
PROVIDERS: PCP Internal Medicine; Visit Provider Internal Medicine
DX: I10 Essential (primary) hypertension (principal); E78.5 Hyperlipidemia, unspecified; R79.89 Other specified abnormal findings of blood chemistry

== ENCOUNTER 2025-03-07 09:08 | Outpatient (REF) | payer BC, SELFPAY ==
[2025-03-07 11:38] LABS: Alanine Aminotransferase 14 U/L (0-31); Anion Gap 12 (12-20); Aspartate Amino Transferase 26 U/L (5-31); Blood Urea Nitrogen 18 mg/dL (9-16); Calcium 9.7 mg/dL (8.4-10.2); Carbon Dioxide 27 mmol/L (22-29); Chloride 106 mmol/L (96-108); Cholesterol 203 mg/dL (<200); Estimated Glomerular Filt Rate > 60; HDL Cholesterol 68 mg/dL (>40); Potassium 4.0 mmol/L (3.3-5.1); Sodium 141 mmol/L (135-145); Triglycerides 59 mg/dL (<150)
[2025-03-07 11:56] LABS: Free T4 (Free Thyroxine) 0.77 ng/dL (0.71-1.85); Thyroid Stimulating Hormone 15.70 uIU/mL (0.32-4.0)
== END 2025-03-07 09:09 | disposition home or self-care (01) ==
LOC: HO.HMGCLDS 09:08
PROVIDERS: PCP Internal Medicine; Visit Provider Internal Medicine
DX: I10 Essential (primary) hypertension (principal); R79.89 Other specified abnormal findings of blood chemistry; R76.89 Other specified abnormal immunological findings in serum; E78.5 Hyperlipidemia, unspecified; Z78.0 Asymptomatic menopausal state; Z13.21 Encounter for screening for nutritional disorder
CPT/HCPCS: 36415; 80048; 80061; 82306; 84439; 84443; 84450; 84460; 84481; 86376

== ENCOUNTER 2025-03-12 09:07 | Outpatient (AMB) | payer BC, SELFPAY ==
--- NOTE | 2025-03-12 09:20 | A.OFFPC_ITS ---
Vital Signs 03/12/25 09:36 Height 5 ft Weight 158 lb BMI 30.9 BP 110/60 Blood Pressure Location Lt brachial Position Sitting Respiration 16 Pulse 89 Pulse Source Pulse Oximeter Temp 98.1 F Temp Source Oral Pulse Oximetry (%) 97 Oxygen Delivery Method Room Air Intake Visit Reasons: 4m follow up labs Intake Note: Pt is here today for her 4mo. f/u [employer] Required: No Allergies codeine Allergy (Unknown, Verified 03/12/25 09:51) tachycardia hydromorphone (Dilaudid) Adverse Reaction (Unknown, Verified 03/12/25 09:51) vomiting Hydrocodone-Acetaminophen Adverse Reaction (Unknown, Uncoded 03/12/25 09:51) palpitations , twitching Medication List - Last Reconciled 03/12/25 by Darlyn Garcia MD cholecalciferol (vitamin D3) 50 mcg PO DAILY losartan 25 mg PO DAILY 90 days [id number]-[id number] 1 tab PO DAILY Tobacco use date assessed: 03/12/25 Fall risk assessment: No Falls in past year Last assessed Fall Risk: 03/12/25 Dental Screening Dental Screen Date: 03/12/25 Did you have a dental visit in the last 12 months?: Yes Did you have a dental problem in the last 6 months where you did not have access to dental care?: No Was dental information given to patient?: Patient has dentist HPI 4m follow up labs HPI Details The patient is a 75 year old female presenting for a follow-up visit to review lab results and manage chronic conditions. Recent lab work shows normal electrolytes, kidney function, and blood sugar of 90. Her total cholesterol has slightly increased from 199 to 203, with an LDL of 144, but her HDL is good. Thyroid peroxidase antibodies were previously elevated in October but have decreased as of the recent February labs.. The patient reports feeling fine and denies increased fatigue, depression, or memory issues. She reports some morning stiffness that resolves within 10 minutes of walking around. She has lost some weight recently. Her family history is significant for thyroid issues in her mother and daughter, and possibly her grandmother. Her mother also had uncontrolled blood pressure and ultimately had a stroke. Her brother in September from stomach cancer. For exercise, she walks her dog for at least a mile to a mile and a half daily and is making an effort to follow a Mediterranean diet. [facility] Medical History (Updated 03/12/25 @ 10:18 by Darlyn Garcia MD) Greg's disease Elevated TSH Dyslipidemia Anti-TPO antibodies present History of osteopenia Menopause Essential hypertension Recurrent kidney stones Surgical History History of laparoscopic appendectomy History of cataract surgery Family History Father Acute myocardial infarction Alcoholism Ankylosing spondylitis Mother HTN (hypertension) Thyroid disease Maternal Grandmother Non-insulin dependent diabetes mellitus Sister Hypothyroidism (acquired) Sister Heart disease Daughter No problems noted. Daughter No problems noted. Brother No problems noted. Brother No problems noted. Brother No problems noted. Brother No problems noted. Brother No problems noted. Social History Housing: House Alcohol intake: current Patient Tobacco Use Status: Former Tobacco user Tobacco use type: Cigarette Years Smoked: 5 yrs e-Cigarette/Vaping Use: Never Used Second Hand Smoke Exposure: No service: No Current occupational status: retired Current occupational exposures/hazards: No Cognitive needs: No Hearing needs: No Vision needs: No Questionnaire PHQ-9 Over the last 2 weeks, how often have you been bothered by any of the following problems? 1. Little interest or pleasure in doing things: not at all 2. Feeling down, depressed, or hopeless: not at all 3. Trouble falling or staying asleep, or sleeping too much: not at all 4. Feeling tired or having little energy: not at all 5. Poor appetite or overeating: not at all 6. Feeling bad about yourself - or that you are a failure or have let yourself or your family down: not at all 7. Trouble concentrating on things, such as reading the newspaper or watching television: not at all 8. Moving or speaking so slowly that other people could have noticed. Or the opposite - being so fidgety or restless that you have been moving around a lot more than usual: not at all 9. Thoughts that you would be better off or of hurting yourself in some way: not at all Total score: 0 Depression Screening Interpretation: Negative Depression Screening Done: Yes Source: Developed by Drs. Shant Guzman, Elisabeth Sutherland, Danny Yun and colleagues, with an educational milady from [employer]. Thrive Questionnaire Date Thrive assessed: 05/23/24 I am a: Patient What is your living situation today?: I have a steady place to live Within the past 12 months, did the food you bought not last and you didn't have the money to get more?: Never true Within the past 12 months, did you worry whether your food would run out before you got money to buy more?: Never true Do you have trouble paying for medicines?: No Do you have trouble getting transportation to medical appointments?: No Do you have trouble paying your heating and electricity bill?: No Do you have trouble taking care of your child, family member or friend?: No Do you have trouble with day-to-day activities such as bathing, preparing meals, shopping, managing finances, etc.?: No Are you currently unemployed and looking for a job?: No Are you interested in more education?: No Please select the resources that you would like help with: None Currently or been in a relationship where the following occur: No concerns reported THRIVE Score: 0 JACK-7 AMB Questionnaire JACK-7 Date JACK - 7 assessed: 05/23/24 Feeling nervous, anxious, or on edge: 0 = Not at all Not being able to stop or control worryin = Not at all Worrying too much about different things: 0 = Not at all Trouble relaxin = Not at all Being so restless that it is hard to sit still: 0 = Not at all Becoming easily annoyed or irritable: 0 = Not at all Feeling afraid as if something awful might happen: 0 = Not at all Total JACK-7 score (0-4 normal; 5-9 mild; 10-14 moderate; 15-21 severe): 0 Source: Developed by Drs. Shant Guzman, Danny Rcokwell and colleagues, with an educational milady from [employer]. Review of Systems Const Denies body aches, Denies fatigue, Denies fever(s), Denies headache(s) and Denies weakness Eyes Details: Currently sees her president finance company yearly, sees Dr. Garrett Denies change in vision ENT Denies dizziness, Denies headache(s) and Denies nasal congestion Card Denies chest pain, Denies lightheadedness, Denies palpitations and Denies dyspnea Resp Denies chest congestion, Denies cough, Denies dyspnea and Denies wheezing GI Denies abdominal pain, Denies change in bowel habits and Denies heartburn Denies hematuria, Denies urinary frequency, Denies difficulty voiding, Denies dysuria and Denies urinary incontinence Musc Denies myalgias, Denies arthralgias, Denies joint swelling and Denies limited range of motion Skin/Breast Denies lesions and Denies rash Neuro Denies dizziness, Denies headache(s) and Denies weakness Psych Denies anxiety and Denies depression Endo Denies fatigue, Denies polydipsia, Denies polyuria and Denies palpitations Keith/Lymph Denies easy bruising Aller/Immun Denies seasonal rhinorrhea and Denies wheezing Physical exam (Primary Care) Vital Signs: Last Vital Signs Temp 98.1 F 03/12/25 09:36 Pulse 89 03/12/25 09:36 Resp 16 03/12/25 09:36 BP 110/60 03/12/25 09:36 Pulse Ox 97 03/12/25 09:36 Oxygen Delivery Method Room Air 03/12/25 09:36 BMI result Body Mass Index 30.9 Tobacco/Smoking Status: Tobacco use Status Tobacco use date assessed 03/12/25 03/12/25 09:21 Patient Tobacco Use Status Former Tobacco user 03/12/25 09:21 Tobacco use type Cigarette 03/12/25 09:21 e-Cigarette/Vaping Use Never Used 03/12/25 09:21 PHQ-9: PHQ-9 Score PHQ-9: Total score 0 03/12/25 09:51 Depression Screening Interpretation: Negative Thrive Assessment: Date of Thrive Assessment Date Thrive assessed 05/23/24 03/12/25 09:21 Currently or been in a relationship where the following occur: No concerns reported Const Orientation/consciousness: patient oriented x3 HENMT Other: Normocephalic atraumatic General nose exam: Normal external nose present and No nasal discharge present Face and sinus: Yes face symmetric Mouth: Normal oral and palatal mucosa present and moist mucous membranes Eyes General: appearance normal, both eyes and all related structures Neck Other: Supple no lymphadenopathy, thyroid gland nonpalpable Neck: Yes full ROM, Yes no lymphadenopathy and Yes supple Chest Breast/axilla palpation: normal palpation of the breasts Resp Other: Clear to auscultation bilaterally Cardio Other: S1-S2 present regular rate and rhythm GI Inspection: Yes normal to inspection Palpation (GI): Soft to palpation, nontender and no guarding General: Yes no CVA tenderness Back/Spine/Pelvis Back: no CVA tenderness and No back tenderness Skin General skin exam: no rashes or lesions noted Neuro General: patient oriented x3, gait normal, Normal light touch and pain sensation, no focal motor deficits and CN's II-XI intact bilaterally Extrem General: Yes full ROM, Yes no joint enlargement, Yes no pedal edema, Yes no calf tenderness and Yes normal gait Psych Appearance: grossly normal and well kempt Mental Status: mental status grossly normal Speech and movement: Normal speech and movement present Affect: normal affect Attitude: cooperative Results Reviewed Results Reviewed: RUN: 03/12/25 0406 PAGE 1 [facility] [address] [place] [id number] Financial Planning Advisor: Jeremi Sigala M.D. Specimen Inquiry Name: Kurt Jieen Age/Sex: 75/F : 1950 Unit#: [id number] Attend Dr: Darlyn Garcia MD Re03/07/25 Status: DEP [facility] SPEC : [id number] ADY: 03/07/25 STATUS: COMP REQ : [id number] RECD: 03/07/[address]: Darlyn Garcia MD COMP: 03/07/25 ENTERED: 03/07/[address]: ORDERED: Met Prof Fast, AST, ALT, Lipid Panel, Vitamin D 25-OH, Free T4, TSH Test Result Flag Reference Sodium 141 135-145 mmol/L Potassium 4.0 3.3-5.1 mmol/L CL 106 96-108 mmol/L CO2 27 22-29 mmol/L Gap 12 12-20 BUN 18 H 9-16 mg/dL Creat 0.82 0.5-1.4 mg/dL eGFR > 60 Chronic Kidney Disease: Estimated GFR < 60 mL/min/1.73m2 Severe Kidney Disease: Estimated GFR < 15 mL/min/1.73m2 FBS 90 60-99 mg/dL CA 9.7 8.4-10.2 mg/dL AST (GOT) 26 5-31 U/L ALT (GPT) 14 0-31 U/L Triglyceride 59 <150 mg/dL Desirable Triglyceride: less than 150 mg/dL Borderline High Triglyceride 150-199 mg/dL High Triglyceride: 200-499 mg/dL Very High Triglyceride: greater than or equal to 5OO mg/dL Cholesterol 203 H <200 mg/dL Desirable Cholesterol: less than 200 mg/dL Borderline High Cholesterol: 200-239 mg/dL High Cholesterol: greater than 239 mg/dL LDL Calculated 124 H <100 mg/dL Desirable LDL: less than 100 mg/dL Near Optimal/Above Optimal LDL: 110-129 mg/dL Borderline High LDL: 130-159 mg/dL High LDL: 160-189 mg/dL Very High LDL: greater than or equal to 190 mg/dL HDL 68 >40 mg/dL Desirable HDL: greater than 40 mg/dL Note: This HDL assay may give artificially low results in patients with liver disease. Vitamin D 25-OH 45.0 >30 ng/mL Health Based Reference Values* < 20 ng/mL Deficient 20-30 ng/mL Insufficient > 30 ng/mL Sufficient *Anai BEAULIEU. N Engl J Med. 2007;[id number]:[id number] There is no well-established upper level of normal vitamin D levels. Some laboratories use 50 ng/mL as an upper limit of normal. However, toxicity is patient-dependent and may occur at any level. Careful correlation with the patient's presentation is necessary and, if there is concern for vitamin D toxicity, treatment should be considered irrespective of the serum level. Care must be taken in interpreting Vitamin D results from different laboratories and methodologies. Published data demonstrated that results from patients undergoing hemodialysis may show a negative bias when tested with various automated 25-OH vitamin D assays when compared to LC-MS/MS. When testing samples from patients whose predominant form of Vitamin D is Vitamin D2, such as patients receiving Vitamin D2 supplementation, results that are subtherapeutic should be confirmed with another method such as LC-MS/MS. Free T4 0.77 0.71-1.85 ng/dL TSH 3rd Gen. 15.70 H 0.32-4.0 uIU/mL Note: A sustained TSH level above 2.5 uIU/mL may warrant further investigation. Coding Level of Care Code Est Pt Level 4 (06428) Diagnoses Essential hypertension I10 Dyslipidemia E78.5 Greg's disease E06.3 Assessment & Plan Assessment & Plan (1) Essential hypertension: Code(s): I10 - Essential (primary) hypertension Category: Medical Plan: Continue on losartan 25 mg daily (2) Dyslipidemia: Code(s): E78.5 - Hyperlipidemia, unspecified Category: Medical Plan: Reviewed recent fasting lipid profile with patient with improving cholesterol levels . Continue to follow a low-cholesterol diet and start doing moderate intensity exercise, at least 30 minutes 3 to 4 times a week. Advised patient to make healthy food choices, eat more fruits, vegetables, whole grains, wild caught fish and low-fat dairy. Limit amount of meat and fried or fatty food products, as well as processed foods and fast foods. Follow-up scheduled with repeat fasting lipid panel in 5 months. 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 Category: Medical Plan: To decreasing TSH levels, with free T4 within normal limits, patient is currently asymptomatic, will continue to monitor thyroid levels, repeat labs to be done in July 2025 Orders: Orders Thyroid Stimulating Hormone 07/08/25 E06.3 - Autoimmune thyroiditis, E78.5 - Hyperlipidemia, unspecified, I10 - Essential (primary) hypertension, Z78.0 - Asymptomatic menopausal state Thyroid Peroxidase Antibodies 07/08/25 E06.3 - Autoimmune thyroiditis, E78.5 - Hyperlipidemia, unspecified, I10 - Essential (primary) hypertension, Z78.0 - Asymptomatic menopausal state Free T4 (Free Thyroxine) 07/08/25 E06.3 - Autoimmune thyroiditis, E78.5 - Hyperlipidemia, unspecified, I10 - Essential (primary) hypertension, Z78.0 - Asymptomatic menopausal state Aspartate Amino Transferase 07/08/25 E06.3 - Autoimmune thyroiditis, E78.5 - Hyperlipidemia, unspecified, I10 - Essential (primary) hypertension, Z78.0 - Asymptomatic menopausal state Vitamin D 25-OH Total 07/08/25 E06.3 - Autoimmune thyroiditis, E78.5 - Hyperlipidemia, unspecified, I10 - Essential (primary) hypertension, Z78.0 - Asymptomatic menopausal state Lipid Panel 07/08/25 E06.3 - Autoimmune thyroiditis, E78.5 - Hyperlipidemia, unspecified, I10 - Essential (primary) hypertension, Z78.0 - Asymptomatic menopausal state Triiodothyronine T3 Free 07/08/25 E06.3 - Autoimmune thyroiditis, E78.5 - Hyperlipidemia, unspecified, I10 - Essential (primary) hypertension, Z78.0 - Asymptomatic menopausal state Basic Metabolic Panel Fasting 07/08/25 E06.3 - Autoimmune thyroiditis, E78.5 - Hyperlipidemia, unspecified, I10 - Essential (primary) hypertension, Z78.0 - Asymptomatic menopausal state Alanine Aminotransferase 07/08/25 E06.3 - Autoimmune thyroiditis, E78.5 - Hyperlipidemia, unspecified, I10 - Essential (primary) hypertension, Z78.0 - Asymptomatic menopausal state
[2025-03-12 09:36] VITALS: BP 110/60; PULSE 89; RESP 16; TEMP 36.7; O2SAT 97; BMI 30.9
== END 2025-03-12 10:26 | disposition home or self-care (01) ==
LOC: HO.HMCC 09:08
PROVIDERS: PCP Internal Medicine; Visit Provider Internal Medicine
DX: I10 Essential (primary) hypertension (principal); E78.5 Hyperlipidemia, unspecified; E06.3 Autoimmune thyroiditis